=== PATIENT | female | born 1930 | race Caucasian/White ===

== ENCOUNTER 2017-09-09 09:51 | Emergency (ER) | payer OTHER, MEDICARE ==
[2017-09-09 10:06] VITALS: RESP 18
[2017-09-09 11:30] LABS: PLATELET COUNT 201 10^3/uL (150-400)
[2017-09-09] MEDS ORDERED: IOPAMIDOL (ISOVUE-300) 100 ML BTL ONE (12:27)
[2017-09-09] MEDS ORDERED: cefTRIAXone 1 GM in STERILE WATER INJ 10 ML IV ONE (13:44)
--- NOTE | 2017-09-09 14:22 | EDPHY ---
H & P Smoking Status: Never smoked Time Seen by Provider: 09/09/17 11:10 HPI/ROS: CHIEF COMPLAINT: Right flank pain HISTORY OF PRESENT ILLNESS: 86-year-old female presents to the emergency department by private vehicle with her daughter complaining of right flank pain. Patient states that this woke her up out of her sleep at 3 o'clock this morning. She felt nauseous. She apparently was dry heaving. She has no associated abdominal pain. She states that the pain has not greatly improved. No chest pain or difficulty breathing. No reported fevers or chills. No urinary symptoms. No known hematuria. No history of kidney stones. No reported trauma. REVIEW OF SYSTEMS: Constitutional: No fever, no chills. Eyes: No double or blurry vision. ENT: No sore throat. Respiratory: No cough, no shortness of breath. Cardiac: No chest pain. Gastrointestinal: No abdominal pain, vomiting or diarrhea. Genitourinary: Dysuria, frequency with urination. Musculoskeletal: Right flank pain as above. No neck pain. Skin: No rashes. Neurological: No headache. (Leela Veliz) Past Medical/Surgical History: Hypertension, COPD, TIA, myocardial infarction 2013, hypothyroidism (Leela Veliz) Social History: Lives with her daughter in [place] (Leela Veliz) Physical Exam: General Appearance: Alert, no distress. Afebrile. Daughter at bedside. Eyes: Pupils equal and round. Extraocular motions are all intact. ENT: Mouth: Mucous membranes moist. Respiratory: No wheezing, rhonchi, or rales, lungs are clear to auscultation. Cardiovascular: Regular rate and rhythm. Gastrointestinal: Abdomen is soft and nontender. No masses, rebound or guarding noted. No CVA tenderness bilaterally. Neurological: Alert and oriented x 3, cranial nerves II through XII grossly intact Skin: Warm and dry, no rashes. Musculoskeletal: Nontender to palpate along the cervical, thoracic or lumbar spine. Neck is supple. Extremities: Full range of motion and no peripheral edema. Psychiatric: Patient is oriented X 3, there is no agitation. (Leela Veliz) Constitutional: Initial Vital Signs Temperature (C) 37.1 C 09/09/17 10:02 Heart Rate 104 H 09/09/17 10:02 Respiratory Rate 18 09/09/17 10:02 Blood Pressure 134/63 H 09/09/17 10:02 O2 Sat (%) 94 09/09/17 10:02 O2 Delivery Mode Room Air Allergies/Adverse Reactions: No Known Allergies Allergy (Unverified 09/09/17 20:18) Home Medications: Medication Instructions Recorded Albuterol Sulfate 2.5 mg IH BID 09/09/17 Albuterol [Proventil Inhaler HFA 2 puffs IH Q4 PRN 09/09/17 (*)] Atorvastatin Calcium [Lipitor 40 40 mg PO HS 09/09/17 mg (*)] Budesonide/Formoterol 160/4.5 2 puffs IH DAILY 09/09/17 [Symbicort 160-4.5 Mcg Inh (*)] Carvedilol [Coreg (*)] 12.5 mg PO BIDMEAL 09/09/17 Clopidogrel Bisulfate [Plavix (*)] 75 mg PO HS 09/09/17 Ferrous Sulfate [Ferrous Sulf 325 325 mg PO HS 09/09/17 MG (*)] Fluticasone Nasal [Flonase Nasal 1 sprays NASAL DAILY PRN 09/09/17 [place]] Furosemide [Lasix 20 MG (*)] 20 mg PO DAILY 09/09/17 Levothyroxine [Synthroid 75 mcg 75 mcg PO DAILY06 09/09/17 (*)] Miconazole Nitrate [Micatin 2% 1 chelsie TP BID PRN 09/09/17 Cream (*)] Montelukast Sodium [Singulair 10 10 mg PO DAILY@1800 09/09/17 mg (*)] [place]-3 Fatty Acids [Fish Oil 1000 2,000 mg PO HS 09/09/17 mg (*)] Pantoprazole Sodium [Protonix 40mg 40 mg PO DAILY 09/09/17 (*)] Potassium Cl [Klor-Con 10 meq (RX)] 10 meq PO DAILY 09/09/17 Psyllium Husk (with Sugar) 1 each PO DAILY 09/09/17 [Metamucil Packet] Quinapril HCl [Accupril 40 MG] 40 mg PO DAILY 09/09/17 amLODIPine BESYLATE [Amlodipine 5 mg PO HS 09/09/17 Besylate] Amoxicillin/Clavulanate Pot 875 mg PO BID #28 tab 03/15/18 [Augmentin 875 MG TAB (*)] Medical Decision Making - Diagnostics Imaging: Discussed imaging studies w/ on call Radiologist ED Course/Re-evaluation: 86-year-old female presents to the emergency department with right flank pain. The urinalysis reveals large amount of red blood cells and white blood cells. CT scan of the abdomen and pelvis with IV contrast reveals: 1. Severely atrophic right kidney with extensive scarring. 2. Suspect pyelitis of the right upper urinary tract evidenced by dilation, abnormal urothelial enhancement, and reactive stranding around the right kidney and right ureter. No obstructing ureteral calculi or mass. Differential diagnosis includes benign stricture at the ureterovesical junction versus reflux uropathy. 3. No renal abscess, CT evidence of pyelonephritis, or emphysematous pyelitis. 4. Constipation and sigmoid diverticulosis. 5. Old L1 compression fracture. I talked with on-call urologist, Dr. Ernie Zarate, who did not feel that the patient required admission. He agreed with treatment of pyelonephritis. Patient felt comfortable being discharged home. Her daughter will watch her closely and bring her back if she develops flank pain, vomiting, fever or if she feels worse. Patient was given 1 g of IV ceftriaxone and will be discharged with oral Keflex. The case was discussed with Dr. Nolberto Perez, secondary supervising physician, who did not directly evaluate the patient but agrees with treatment and plan. ( Leela Veliz) I did not see this patient while she was in the emergency department. However her care was discussed with the PA while the patient was in the department. I agree with treatment plan and management (Nolberto Perez) Differential Diagnosis: Including but not limited to urinary tract infection, pyelonephritis, kidney stone, muscular pain, herniated disc, spine fracture, intra-abdominal causes ( Leela Veliz) - Data Points Laboratory Results: Laboratory Results 09/09/17 11:25 09/09/17 10:30 Medications Given: Discontinued Medications Ceftriaxone Sodium/Dextrose (Rocephin 1 Gm (Premix)) 50 mls @ 100 mls/hr IV ONCE ONE Stop: 09/09/17 14:29 Last Admin: 09/09/17 14:01 Dose: 50 mls Departure - Departure Disposition: Home, Routine, Self-Care Clinical Impression: Pyelonephritis Condition: Good Instructions: Kidney Infection (ED), Flank Pain (ED) Additional Instructions: Keflex as directed. Urine culture will be available in 48 hours. Return if you developed fever, vomiting, worsening flank pain or abdominal pain , or if you feel worse in any way. Follow up with urologist as discussed this week. Referrals: Ernie Zarate MD [Medical Doctor] - 2-3 days, call for appt. (Urologist on-call)
[2017-09-09 14:58] VITALS: BP 129/78; PULSE 79; TEMP 98.4; O2SAT 95
== END 2017-09-09 14:58 | disposition home or self-care (01) ==
DX: N12 Tubulo-interstitial nephritis, not specified as acute or chronic (principal); I10 Essential (primary) hypertension; J44.9 Chronic obstructive pulmonary disease, unspecified; I25.2 Old myocardial infarction; Z86.73 Personal history of transient ischemic attack (TIA), and cerebral infarction without residual deficits
CPT/HCPCS: 74177; 96365; 99285; J0696; Q9967

== ENCOUNTER 2017-09-09 20:17 | Inpatient (IN) | payer OTHER, MEDICARE ==
[2017-09-09] MEDS ORDERED: NS 1,000 ML IV ONE (20:35)
[2017-09-09] MEDS ORDERED: ACETAMINOPHEN 500 MG TAB PO ONE (20:37)
[2017-09-09 20:47] LABS: PLATELET COUNT 186 10^3/uL (150-400)
--- NOTE | 2017-09-09 20:53 | EDPHY ---
H & P Time Seen by Provider: 09/09/17 20:34 HPI/ROS: HPI Fever, vomiting, pyelonephritis, seen earlier in the emergency department. 86-year-old female by private vehicle with family. This patient was seen in our emergency department earlier this morning and diagnosed with pyelonephritis at that time. She received 1 g of IV Rocephin and was discharged on Keflex. CT scan of abdomen and pelvis at that time indicated a right-sided pyelonephritis. Her urine showed evidence of infection. She was doing all right at home for few hours but then started feeling very fatigued, developed a fever with nausea and started vomiting. She also felt short of breath. Her family returned her to the emergency department by private vehicle. ROS: Constitutional: As above, no chills. As above. Eyes: No discharge. No changes in vision. ENT: No sore throat. No nasal congestion or rhinorrhea. Respiratory: No cough. As above. Cardiac: No chest pain, no palpitations. Gastrointestinal: No abdominal pain, as above, no diarrhea. Genitourinary: No hematuria. No dysuria or increased frequency with urination. Musculoskeletal: Some right flank pain. No neck pain. No myalgias or arthralgias. Skin: No rashes. Neurological: No headache. No focal weakness or altered sensation. Past medical history: Hypertension, hypothyroidism, COPD/asthma, TIA, [place] in 2014. Social history: Nonsmoker. No alcohol. Here with family. Physical Exam: General Appearance: Alert, she does not appear in distress. She is not dyspneic. This patient is responding to questions appropriately and in full sentences. This patient appears well-hydrated and well-nourished. Eyes: Pupils equal and round no pallor or injection. No lid edema, erythema or injection. Respiratory: There are no retractions, lungs are clear to auscultation with good air movement bilaterally. No tachypnea. Cardiovascular: Regular rate and rhythm. Borderline tachycardia. No murmur. Gastrointestinal: Abdomen is soft and nontender, no masses, bowel sounds normal. No focal tenderness at McBurney's point. No Acosta sign. Neurological: Motor sensory function is grossly intact. Cranial nerves are normal. Gait is normal. Skin: Warm and dry, no rashes. Musculoskeletal: Mild right-sided CVA tenderness on palpation. No left-sided CVA tenderness on palpation. Extremities are symmetrical. All joints range without pain or impingement. Psychiatric: No agitation. No depression. Database: EKG: Imaging: Procedures: Emergency department course: Vital signs reviewed. She is tachycardic, febrile and mildly hypoxic. She will be started on IV normal saline with 1 L to be given over the next hour. After blood cultures are obtained she will be given another dose of IV Rocephin. Patient does meet criteria for SIRS and initial sepsis protocol. 9:20 p.m., initial venous lactate is 1.4. Her tachycardia has resolved with IV fluids as noted. She is currently in the high 90s for a heart rate. At this time she does not meet criteria for severe sepsis. I spoke with on-call hospitalist Dr. Natalie Perry. She accepts the patient for admission. The patient has received 1 g of IV Rocephin. We checked with the lab. Her urine from earlier today is being cultures and sensitivities will be obtained. 9:25 p.m., Dr. Roxanne Perry is at the bedside. Results of diagnostic testing discussed with the patient and her relatives. Plan for admission reviewed. All of their questions were answered. The patient was admitted in stable condition. Differential Diagnosis: The differential diagnosis on this patient includes but is not limited to pyelonephritis, sepsis, asthma/COPD exacerbation. This represents a partial list of diagnoses considered. These considerations are based on history, physical exam, past history, reassessment and diagnostic testing. Smoking Status: Former smoker Constitutional: Initial Vital Signs Temperature (C) 39 C H 09/09/17 20:20 Heart Rate 123 H 09/09/17 20:20 Respiratory Rate 20 09/09/17 20:20 Blood Pressure 134/83 H 09/09/17 20:20 O2 Sat (%) 90 L 09/09/17 20:20 O2 Delivery Mode Room Air O2 (L/minute) 2 Allergies/Adverse Reactions: No Known Allergies Allergy (Unverified 09/09/17 20:18) Home Medications: Medication Instructions Recorded Albuterol Sulfate 2.5 mg IH BID 09/09/17 Albuterol [Proventil Inhaler HFA 2 puffs IH Q4 PRN 09/09/17 (*)] Atorvastatin Calcium [Lipitor 40 40 mg PO HS 09/09/17 mg (*)] Budesonide/Formoterol 160/4.5 2 puffs IH DAILY 09/09/17 [Symbicort 160-4.5 Mcg Inh (*)] Carvedilol [Coreg (*)] 12.5 mg PO BIDMEAL 09/09/17 Clopidogrel Bisulfate [Plavix (*)] 75 mg PO HS 09/09/17 Ferrous Sulfate [Ferrous Sulf 325 325 mg PO 09/09/17 MG (*)] Fluticasone Nasal [Flonase Nasal 1 sprays NASAL DAILY PRN 09/09/17 [place] (RX)] Furosemide [Lasix 20 MG (*)] 20 mg PO DAILY 09/09/17 Levothyroxine [Synthroid 75 mcg 75 mcg PO DAILY06 09/09/17 (*)] Miconazole Nitrate [Micatin 2% 1 chelsie TP BID PRN 09/09/17 Cream (*)] Montelukast Sodium [Singulair 10 10 mg PO DAILY@1800 09/09/17 mg (*)] [place]-3 Fatty Acids [Fish Oil 1000 2,000 mg PO HS 09/09/17 mg (*)] Pantoprazole Sodium [Protonix 40mg 40 mg PO DAILY 09/09/17 (*)] Potassium Cl [Klor-Con] 10 meq PO DAILY 09/09/17 Psyllium Husk (with Sugar) 1 each PO DAILY 09/09/17 [Metamucil Packet] Quinapril HCl [Accupril 40 MG] 40 mg PO DAILY 09/09/17 amLODIPine BESYLATE [Amlodipine 5 mg PO HS 09/09/17 Besylate] Medical Decision Making - Data Points Laboratory Results: Laboratory Results 09/09/17 20:37 09/09/17 20:37 Microbiology Results: MICROBIOLOGY 09/09/17 21:06 Blood Blood Culture - Preliminary 09/09/17 20:37 Blood Blood Culture - Preliminary Medications Given: Acetaminophen (Tylenol) 650 mg PO Q4HRS PRN PRN Reason: Pain, Mild/Fever, Can Take PO Stop: 03/08/18 21:41 Last Admin: 09/10/17 17:16 Dose: 650 mg Albuterol (Proventil Neb) 2.5 ml IH BID [facility] Stop: 03/09/18 08:59 Last Admin: 09/11/17 11:10 Dose: 2.5 ml Amlodipine Besylate (Norvasc) 5 mg PO [facility] Stop: 03/09/18 20:59 Last Admin: 09/10/17 21:42 Dose: 5 mg Atorvastatin Calcium (Lipitor) 40 mg PO HS [facility] Stop: 03/09/18 20:59 Last Admin: 09/10/17 21:42 Dose: 40 mg Budesonide/Formoterol Fumarate (Symbicort 160-4.5 Mcg Inhaler) 2 puffs IH DAILY [facility] Stop: 03/09/18 08:59 Last Admin: 09/11/17 10:04 Dose: 2 puffs Carvedilol (Coreg) 12.5 mg PO BIDMEAL [facility] Stop: 03/09/18 17:59 Last Admin: 09/11/17 08:18 Dose: 12.5 mg Clopidogrel Bisulfate (Plavix) 75 mg PO HS [facility] Stop: 03/08/18 23:06 Last Admin: 09/10/17 21:42 Dose: 75 mg Enoxaparin Sodium (Lovenox) 40 mg SC DAILY [facility] Stop: 03/09/18 08:59 Last Admin: 09/11/17 13:16 Dose: Not Given Ferrous Sulfate (Ferrous Sulfate) 325 mg PO HS [facility] Stop: 03/09/18 20:59 Last Admin: 09/10/17 21:42 Dose: 325 mg Furosemide (Lasix) 20 mg PO DAILY [facility] Stop: 03/09/18 08:59 Last Admin: 09/11/17 08:18 Dose: 20 mg Cefepime HCl 1 gm/ Sterile (Water) 11.3 mls @ 135.6 mls/hr IV Q8H [facility] PRN Reason: Protocol Stop: 10/10/17 04:59 Last Admin: 09/11/17 13:17 Dose: 11.3 mls Levothyroxine Sodium (Synthroid) 75 mcg PO DAILY06 [facility] Stop: 03/09/18 05:59 Last Admin: 09/11/17 05:42 Dose: 75 mcg Lisinopril (Zestril) 40 mg PO DAILY [facility] Stop: 03/10/18 08:59 Last Admin: 09/11/17 08:19 Dose: 40 mg Montelukast Sodium (Singulair) 10 mg PO DAILY@1800 [facility] Stop: 03/09/18 17:59 Last Admin: 09/10/17 18:02 Dose: 10 mg Pantoprazole Sodium (Protonix) 40 mg PO DAILY [facility] Stop: 03/09/18 08:59 Last Admin: 09/11/17 08:19 Dose: 40 mg Potassium Chloride (Klor-Con) 10 meq PO DAILY [facility] Stop: 03/09/18 08:59 Last Admin: 09/11/17 08:19 Dose: 10 meq Psyllium Hydrophilic Mucilloid (Metamucil/Konsyl) 1 each PO DAILY [facility] Stop: 03/10/18 08:59 Last Admin: 09/11/17 08:20 Dose: 1 each Discontinued Medications Acetaminophen (Tylenol) 1,000 mg PO EDNOW ONE Stop: 09/09/17 20:38 Last Admin: 09/09/17 20:40 Dose: 1,000 mg Sodium Chloride (Ns) 1,000 mls @ 0 mls/hr IV ONCE ONE; [place] PRN Reason: Protocol Stop: 09/09/17 20:36 Last Admin: 09/09/17 20:41 Dose: 1,000 mls Ceftriaxone Sodium/Dextrose (Rocephin 1 Gm (Premix)) 50 mls @ 100 mls/hr IV EDNOW ONE PRN Reason: Protocol Stop: 09/09/17 21:24 Last Admin: 09/09/17 21:03 Dose: 50 mls Departure - Departure Disposition: [facility] Inpatient Acute Clinical Impression: Pyelonephritis, Fever
[2017-09-09 20:58] LABS: INR 1.02 (0.83-1.16); PROTIME(PATIENT) 13.6 SEC (12.0-15.0)
--- NOTE | 2017-09-09 21:09 | CPEKG ---
Heart Rate: 100 RR Interval: 600 P-R Interval: 208 QRSD Interval: 92 QT Interval: 352 QTC Interval: 454 P Franc[place]: 65 QRS [place]: 52 T Wave Franc[place]: 234 EKG Severity - ABNORMAL ECG - EKG Impression: SINUS TACHYCARDIA EKG Impression: NONSPECIFIC T ABNORMALITIES, LATERAL LEADS Electronically Signed By: Brooke Miguel 10-Sep-2017 23:02:12
[2017-09-09] MEDS ORDERED: ONDANSETRON DISINTEGRATING 4 MG TAB PO PRN (21:42)
[2017-09-09] MEDS ORDERED: ONDANSETRON 4 MG/2 ML VIAL IVP PRN (21:42)
[2017-09-09] MEDS ORDERED: NS 1,000 ML IV SCH (21:45)
--- NOTE | 2017-09-09 22:34 | GHP ---
[f rep st] HISTORY AND PHYSICAL DATE OF ADMISSION: 09/09/2017 CHIEF COMPLAINT: Right flank pain, fever, nausea, and vomiting. HISTORY OF PRESENT ILLNESS: The patient is an 86-year-old female with a history of hypertension, COPD, TIA, and [place], who presents to the emergency department with fever, nausea, vomiting, and right flank pain. She was seen in the ED earlier today, diagnosed with pyelonephritis, and was discharged on oral Keflex. Her symptoms woke her from sleep this morning at 3 a.m. with sudden severe right flank pain. Throughout the day, she has developed fever to 102, and also reports nausea with several episodes of vomiting. She endorsed chills , but denies rigors. Prior to this event, she was diagnosed with a yeast infection 2 weeks ago, and has been using topical miconazole for the past 2 weeks. She did endorse dysuria at the onset of her yeast infection, so it is unclear if her UTI symptoms may have started at that time. After discharging from the emergency department this morning, she continued to feel fatigued, with worsening fever and persistent nausea and vomiting, as well as shortness of breath. She returned to the emergency department. She was given a 1 L normal saline fluid bolus, urine cultures and blood cultures were drawn, and she was given 1 g of IV ceftriaxone. She was admitted to the hospital for further management. PAST MEDICAL HISTORY: 1. Hypertension. 2. Hypothyroidism. 3. COPD/asthma. 4. History of TIA. 5. History of [place] in 2013. MEDICATIONS: Please see Present for completed outpatient medication list. ALLERGIES: She has no known drug allergies. SOCIAL HISTORY: The patient lives with her daughters. She is independent in her activities of daily living. They report some memory loss. She denies alcohol or tobacco. FAMILY HISTORY: Reviewed and noncontributory. REVIEW OF SYSTEMS: A 10-point review of systems was performed and was negative , except as per HPI. OBJECTIVE: VITAL SIGNS: Temperature on arrival this evening was 39 degrees Celsius, blood pressure 134/83, heart rate 123. After 1 L normal saline, heart rate is down to 94. Respiratory rate 16, she is 97% on room air. GENERAL: The patient is awake, alert, oriented, in no acute distress. HEENT: Head is atraumatic, normocephalic. Pupils equal, round, reactive to light. Extraocular muscles intact. Oropharynx clear. Mucous members are moist. NECK : Supple. There is no JVD. HEART: Regular rate and rhythm without murmur. LUNGS: Clear to auscultation bilaterally. ABDOMEN: Soft, nondistended, nontender with normoactive bowel sounds. She has right-sided CVA tenderness. EXTREMITIES: Without cyanosis, clubbing, or edema. NEUROLOGIC: Grossly nonfocal. LABORATORY DATA: CBC reveals a white blood cell count of 14.1 with 94% neutrophils. Hemoglobin is normal. Lactate is normal at 1.4. Complete metabolic panel is remarkable for sodium of 130, blood glucose 133, total bilirubin 1.5. LFTs otherwise normal. Urinalysis from this morning showed 3+ blood, 3+ leukocyte esterase, with 5125 white blood cells. Urine culture is pending. ASSESSMENT AND PLAN: The patient is an 86-year-old female who returns to the emergency department with worsening fever, nausea, vomiting, and flank pain, and is admitted to the hospital for pyelonephritis. 1. Sepsis secondary to acute pyelonephritis. She meets SIRS criteria for sepsis with fever, tachycardia and leukocytosis. No hypotension. CT abdomen and pelvis performed this morning is suggestive of pyelonephritis with abnormal urothelial enhancement, stranding around the right kidney and ureter, with no evidence of obstructing calculi or mass. A stricture at the ureterovesical junction versus reflexive uropathy is considered, and she may warrant inpatient Urology consultation if she has clinical deterioration. I reviewed her prior culture data. She grew Pseudomonas on a urine culture from July 2016 which was sensitive to cefepime. Therefore, I will change her from ceftriaxone to cefepime and follow up urine culture and blood cultures to further tailor antibiotics as indicated. Will continue normal saline overnight, antiemetics, and supportive care. 2. Chronic obstructive pulmonary disease. Her chest x-ray shows no acute cardiopulmonary abnormality. Will continue her outpatient medications. 3. Hypertension. Hold outpatient meds for now to ensure she does not develop hypotension during acute infection / sepsis. Resume as indicated. 4. History of transient ischemic attack. Continue Plavix. 5. History of myocardial infarction. She is chest pain-free. Continue beta- janeen, statin, and Plavix once her medication reconciliation is completed. 6. Deep venous thrombosis prophylaxis. Lovenox. 7. Code status: Patient is full code. DISPOSITION: Patient admitted to inpatient status. I anticipate greater than 48 hours hospitalization for ongoing management of her acute pyelonephritis and associated sepsis. /[id number]/MODL MTDD
[2017-09-09] MEDS ORDERED: ALBUTEROL 60 PUFFS/8 GM MDI IH PRN (23:06)
[2017-09-09] MEDS ORDERED: FLUTICASONE NASAL 120 SPRAYS/16 GM MDI EACHNARE PRN (23:06)
[2017-09-10] MEDS: CLOPIDOGREL BISULFATE 75 MG TAB PO SCH ×2 (00:34→21:42)
[2017-09-10] MEDS: LEVOTHYROXINE 75 MCG TAB PO SCH (05:06)
[2017-09-10] MEDS: CEFEPIME HCL 1 GM in STERILE WATER INJ 11.3 ML IV SCH ×3 (05:06→21:42)
[2017-09-10 05:36] LABS: PLATELET COUNT 144 10^3/uL (150-400)
--- NOTE | 2017-09-10 08:24 | PDMN ---
Medical Necessity Medical necessity: est los>2mn for sepsis r/t pyelonephritis, meeting SIRS criteria w/fever, tachycardia and leukocytosis, consider stricture at ureterovesical junction vs reflexive ureopathy; admit for IV abx, follow cx's, and possible urology consult; comorbid COPD, HTN, hx TIA, [place]; per order and H&P 09/09/17
[2017-09-10] MEDS: FUROSEMIDE 20 MG TAB PO SCH (09:21)
[2017-09-10] MEDS: ENOXAPARIN 40 MG/0.4 ML SYR SC SCH (09:22)
[2017-09-10] MEDS: POTASSIUM CL 10 MEQ TAB PO SCH (09:22)
[2017-09-10] MEDS: PANTOPRAZOLE SODIUM 40 MG TAB PO SCH (09:22)
[2017-09-10] MEDS: ALBUTEROL 3 ML DEYVIAL IH SCH ×2 (09:55→20:47)
[2017-09-10] MEDS: BUDESONIDE/FORMOTEROL 160/4.5 60 PUFFS/MDI IH SCH (10:13)
[2017-09-10] MEDS ORDERED: PROTOCOL POTASSIUM 1 DOSE MISC PRN (11:10)
[2017-09-10] MEDS: ACETAMINOPHEN 325 MG TAB PO PRN ×2 (12:26→17:16)
--- NOTE | 2017-09-10 12:56 | HOSPPROG ---
Hospitalist Progress Note Assessment/Plan: * Acute right pyelo with sepsis (fever, tachycardia, leukocytosis with right flank pain) -IV cefepime given pseudomonas on past culture -? 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 Avilez urology -he did not recommend any further imaging - limited by non-functional kidney -perc nephrostomy if worsens - currently very non-toxic * CAD -continue Plavix * COPD -Symbicort * HTN -home meds as BP allows * Vaginal yeast infection s/p miconazole Subjective: No further flank pain. Feels great Objective: Vital Signs Temp Pulse Resp BP Pulse Ox 36.5 C 85 16 114/52 L 93 09/10/17 11:48 09/10/17 11:48 09/10/17 11:48 09/10/17 11:48 09/10/17 11:48 Laboratory Results 09/10/17 05:05 09/10/17 05:05 09/09/17 09/10/17 09/11/17 05:59 05:59 05:59 Intake Total 700 Output Total 400 Balance 700 -400 PT 13.6 SEC (12.0-15.0) 09/09/17 20:37 INR 1.02 (0.83-1.16) 09/09/17 20:37 CT abd - atrophic right kidney with stranding - Physical Exam Constitutional: no apparent distress, appears nourished, not in pain Cardiovascular: regular rate and rhythym, no murmur, rub, or gallop Respiratory: no respiratory distress, no rales or rhonchi, clear to auscultation Gastrointestinal: normoactive bowel sounds, soft, non-tender abdomen, no palpable masses Skin: no rashes or abrasions, no fluctuance, no induration Neurologic: AAOx3, sensation intact bilaterally Psychiatric: interacting appropriately, not anxious, not encephalopathic, thought process linear ICD10 Worksheet Patient Problems: Problems Problem Status Onset Pyelonephritis Acute
--- NOTE | 2017-09-10 14:55 | ASMTCASEMG ---
Living Arrangements What is your living Answers: With Child(bernardo) arrangement? Who do you live with? Type Of Residence What kind of residence do Answers: House you live in? Discharge Plan Comments Coordination Status Comments Notes: Pt is a 86 y/o female admitted for pyelonephritis. Therapies have been ordered. OT is recommending home w/ daughter independently. Still awaiting for PT recommendations. CM to follow. Plan: TBD Date Signed: 09/10/2017 02:55 PM Electronically Signed By:LEILA Amaya
[2017-09-10] MEDS: CARVEDILOL 6.25 MG TAB PO SCH (17:06)
[2017-09-10] MEDS: MONTELUKAST SODIUM 10 MG TAB PO SCH (18:02)
[2017-09-10] MEDS: amLODIPine BESYLATE 5 MG TAB PO SCH (21:42)
[2017-09-10] MEDS: FERROUS SULFATE 325 MG TAB PO SCH (21:42)
[2017-09-10] MEDS: ATORVASTATIN CALCIUM 40 MG TAB PO SCH (21:42)
[2017-09-11 05:28] LABS: PLATELET COUNT 151 10^3/uL (150-400)
[2017-09-11] MEDS: CEFEPIME HCL 1 GM in STERILE WATER INJ 11.3 ML IV SCH ×3 (05:41→20:40)
[2017-09-11] MEDS: LEVOTHYROXINE 75 MCG TAB PO SCH (05:42)
[2017-09-11] MEDS: FUROSEMIDE 20 MG TAB PO SCH (08:18)
[2017-09-11] MEDS: CARVEDILOL 6.25 MG TAB PO SCH ×2 (08:18→17:51)
[2017-09-11] MEDS: ENOXAPARIN 40 MG/0.4 ML SYR SC SCH ×2 (08:18→13:16)
[2017-09-11] MEDS: POTASSIUM CL 10 MEQ TAB PO SCH (08:19)
[2017-09-11] MEDS: LISINOPRIL 40 MG TAB PO SCH (08:19)
[2017-09-11] MEDS: PANTOPRAZOLE SODIUM 40 MG TAB PO SCH (08:19)
[2017-09-11] MEDS: PSYLLIUM METAMUCIL 1 PKT PO SCH (08:20)
[2017-09-11] MEDS ORDERED: NON-FORMULARY NEW DRUG (Quinapril Hcl [Accupril 40 Mg] 40 MG) PO SCH (09:00)
[2017-09-11] MEDS: BUDESONIDE/FORMOTEROL 160/4.5 60 PUFFS/MDI IH SCH (10:04)
--- NOTE | 2017-09-11 10:37 | ASMTCMCOM ---
CM Note CM Note Notes: PT is recommending home independent. Pt will most likely d/c without any needs. Pt will return to living w/ daughters. CM available for changes. Plan: Independent Date Signed: 09/11/2017 10:37 AM Electronically Signed By:LEILA Amaya
[2017-09-11] MEDS: ALBUTEROL 3 ML DEYVIAL IH SCH ×2 (11:10→20:58)
--- NOTE | 2017-09-11 11:25 | GCON ---
[f rep st] CONSULTATION INFECTIOUS DISEASE CONSULTATION DATE OF CONSULTATION: 09/11/2017 REFERRING PHYSICIAN: Jimena Mullins MD REASON FOR CONSULTATION: Pyelonephritis. CHIEF COMPLAINT: Right flank pain and fevers. HISTORY OF PRESENTING ILLNESS: This is an 86-year-old, female with a past medical history significant for COPD, hypothyroidism, hypertension, TIA, and [place] who presented on Sunday with acute onset of flank pain. It apparently woke her up at 3:00 a.m. She came into the ER later that m orning and at that time she did not have any fever. She had some mild discomfort with urination, but significant right flank pain. She had a urinalysis done at the time, which showed urine WBCs of 50- 182 with urine RBC of 10-15, 3+ leukocyte esterases. No blood cultures were done at that time. She had an abdominal CT done also which showed a severely atrophic right kidney with extensive scarring b ut also suspicious for pyelonephritis because of dilation, abnormal urothelial enhancement and strand ing around the right kidney and right ureter. There was no identification of any calculi or mass but there was also a question of possible stricture at the ureterovesical junction. She was given a dos e of Rocephin in the ER and then sent home on Keflex therapy. She possibly took 1 dose, but during t he rest of the day, she had fevers spiking to 103, but shaking chills and vomiting and thus returned back to the ER later that evening. Blood cultures x2 sets were drawn and those are currently no grow th to date. She did have a significant leukocytosis when she came in Sunday at 16.3, it was down to 14.1 later that evening but with an ongoing left shift. At that time she was febrile to 39 a nd tachycardic with a heart rate of 123. She was placed on cefepime therapy. She states that since that time, her right flank pain has resolved and she no longer has dysuria. She also feels her urina ry frequency has come down to baseline. Her white blood cell count has steadily improved since that time and was down to 7.2 today with only mild left shift. She had a repeat urine culture done on the , which is pending. Her urine culture from [place] [id number] of a gram-negative reginaldo lactose landscape artist and then 4000 of a 2nd gram-negative reginaldo lactose ferme nter, and then 3 [place] [id number] colony-forming units. She did have a previous urine cul ture about 1 year ago, which had Pseudomonas in it. Two weeks ago she had another urine done which h ad also had 3 [place] [id number] units colony-forming units. Ubaldo Asher is now consulted for further evaluation and opinion. REVIEW OF SYSTEMS: GENERAL: Had fevers and shaking chills on admission, that has subsequently resol wallace. HEAD: No headaches. EYES: No change in vision. ENT: No sore throat, difficulty swallowing, ear pain or drainage. CARDIOVASCULAR: No chest pain or rapid heartbeat. RESPIRATORY: No increase d shortness of breath, cough, or sputum production. She has baseline shortness of breath with minima l exertion. ABDOMEN: No nausea, vomiting, abdominal pain, or diarrhea now. BACK: No current flank pain. : Resolution of her dysuria and increased urinary frequency. MUSCULOSKELETAL: No joint p ains or muscle aches. SKIN: No rashes. Rest of 10-point review of systems essentially negative unl ess stated above. PAST MEDICAL HISTORY: Significant for COPD, hypothyroidism, hypertension, TIA, [place]. PAST SURGICAL HISTORY: Significant for stent placement, carotid endarterectomy, recent right lower t ooth extraction about 1 week ago for a cracked tooth. She was not placed on antibiotics. She also h ad a tib-fib fracture that was status post ORIF. ALLERGIES: No known drug allergies. SOCIAL HISTORY: She lives with her daughter. She is independent with her daily activities. She is a former smoker. She drinks alcohol socially. FAMILY HISTORY: Significant for her mother dying with tuberculosis and her father dying of a heart a ttack. MEDICATIONS: As per AUG. PHYSICAL EXAMINATION: VITAL SIGNS: Temperature current 36.7, pulse is 78, blood pressure 122/74, O2 saturation 96% on 2 L O2 via nasal cannula. GENERAL EXAM: She is resting in bed, in no acute respi ratory distress. Awake, alert, oriented x3. HEENT: Head is normocephalic, atraumatic. Eyes withou t conjunctival injection. Oropharynx is clear. There is no posterior erythema or thrush. She has u pper dentures. Her right posterior lower gumline with evidence of an abscessed tooth. She has tameka s noted. It is tender to palpate over that area. CARDIOVASCULAR: S1, S2. Regular rate and rhythm. She has a 3/6 systolic murmur present. RESPIRATORY: Clear to auscultation bilaterally. No rhonch i appreciated. ABDOMEN: Positive bowel sounds in all quadrants. Soft, nontender, nondistended. EX TREMITIES: No lower extremity edema. MUSCULOSKELETAL: No obvious joint effusions or pain to palpat ion over the joint. SKIN: No obvious rashes. LABORATORY DATA: White blood cell count 7.2, hemoglobin 11.2, platelets 151, neutrophil count 75%. Chemistry: Sodium 139, potassium 4.2, chloride 107, bicarb is 24, BUN is 10, creatinine 0.6. LFTs d one 2 days ago were within normal range. Urinalysis on both the and the 10 of September showed ur ine WBCs of 50 to 182 with 3+ leuk esterases, 3+ blood and protein present. Cultures from the a s stated above. Cultures from the and the urine are pending. Blood cultures in 2 sets on the 07 02 were no growth to date, but that was after 1 dose of Rocephin and a dose of Keflex. Imaging results have all been reviewed by me as stated above. ASSESSMENT: Right pyelonephritis. PLAN: Acute onset of right flank pain coupled with a fever and pyuria along with CT findings of brnuo nephric stranding, suspicious for pyelonephritis. Interestingly, she did not have a very high colony count on her urine specimen prior to antibiotics. Her subsequent blood cultures and urine cultures have been done, but they were after doses of antibiotics given so yield will be low for anything to s ignificantly grow out. The patient is currently on cefepime, is responding well. Likely, we can radu row down therapy based on her preliminary urine culture with gram-negative rods, lactose fermenters. Likely need at least 1 additional day to fully have her cultures mature. We will have micro workup per previous urine cultures to see if this may help us tailor down her therapy and also assess for pe rhaps oral options to go home with. She will likely need 10-14 days of therapy. The plan of care wa s explained in detail to the patient and her daughter. Lab results and culture results were also rev iewed with them. I thank you very much providing us the opportunity to care for your patient in consultation. /[id number]/MODL
--- NOTE | 2017-09-11 15:26 | HOSPPROG ---
Hospitalist Progress Note Assessment/Plan: Assessment/Plan: 86-year-old female new to my care on 09/11 last 18 presenting with: * Acute right pyelo with sepsis (fever, tachycardia, leukocytosis with right flank pain) -IV cefepime given pseudomonas on past culture -? 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 Avilez urology -he did not recommend any further imaging - limited by non-functional kidney -perc nephrostomy if worsens - currently very non-toxic * CAD -continue Plavix * COPD -Symbicort * HTN -home meds as BP allows * Vaginal yeast infection s/p miconazole Plan for 1 more day of IV antibiotics and further antibiotics per ID Subjective: Denies any flank pain. Result fevers or chills. Tolerating regular diet. Denies any chest pain or shortness of breath. Objective: Vital Signs Temp Pulse Resp BP Pulse Ox 36.7 C 71 14 122/74 H 95 09/11/17 07:48 09/11/17 11:14 09/11/17 11:14 09/11/17 07:48 09/11/17 11:14 Laboratory Results 09/11/17 05:00 09/11/17 05:00 09/10/17 09/11/17 09/12/17 05:59 05:59 05:59 Intake Total 700 2384 Output Total 400 Balance 700 1984 PT 13.6 SEC (12.0-15.0) 09/09/17 20:37 INR 1.02 (0.83-1.16) 09/09/17 20:37 - Physical Exam Constitutional: no apparent distress, appears nourished, not in pain Cardiovascular: regular rate and rhythym, no murmur, rub, or gallop Respiratory: no respiratory distress, no rales or rhonchi, clear to auscultation Gastrointestinal: normoactive bowel sounds, soft, non-tender abdomen, no palpable masses ICD10 Worksheet Patient Problems: Problems Problem Status Onset Pyelonephritis Acute Fever Acute
[2017-09-11] MEDS: MONTELUKAST SODIUM 10 MG TAB PO SCH (17:51)
[2017-09-11] MEDS: amLODIPine BESYLATE 5 MG TAB PO SCH (20:36)
[2017-09-11] MEDS: CLOPIDOGREL BISULFATE 75 MG TAB PO SCH (20:36)
[2017-09-11] MEDS: ATORVASTATIN CALCIUM 40 MG TAB PO SCH (20:36)
[2017-09-11] MEDS: FERROUS SULFATE 325 MG TAB PO SCH (20:37)
[2017-09-11] MEDS ORDERED: POTASSIUM CL 10 MEQ TAB PO ONE (20:44)
[2017-09-12] MEDS: CEFEPIME HCL 1 GM in STERILE WATER INJ 11.3 ML IV SCH ×3 (05:44→20:35)
[2017-09-12] MEDS: LEVOTHYROXINE 75 MCG TAB PO SCH (05:45)
[2017-09-12] MEDS ORDERED: POTASSIUM CL 10 MEQ TAB PO ONE (07:10)
[2017-09-12] MEDS: PSYLLIUM METAMUCIL 1 PKT PO SCH (08:22)
[2017-09-12] MEDS: ENOXAPARIN 40 MG/0.4 ML SYR SC SCH (08:22)
[2017-09-12] MEDS: CARVEDILOL 6.25 MG TAB PO SCH ×2 (08:23→17:30)
[2017-09-12] MEDS: POTASSIUM CL 10 MEQ TAB PO SCH (08:23)
[2017-09-12] MEDS: FUROSEMIDE 20 MG TAB PO SCH (08:24)
[2017-09-12] MEDS: PANTOPRAZOLE SODIUM 40 MG TAB PO SCH (08:24)
[2017-09-12] MEDS: ALBUTEROL 3 ML DEYVIAL IH SCH ×2 (09:33→20:23)
[2017-09-12] MEDS: BUDESONIDE/FORMOTEROL 160/4.5 60 PUFFS/MDI IH SCH (09:34)
--- NOTE | 2017-09-12 09:49 | HOSPPROG ---
Hospitalist Progress Note Assessment/Plan: 86-year-old female new to my care on 09/11 last 18 presenting with: * Acute right pyelo with sepsis (fever, tachycardia, leukocytosis with right flank pain) (klebsiella and e coli) -IV cefepime given pseudomonas on past culture -? 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 Will require another midnight stay to evaluate sensitivities for treatment. Subjective: Maria De Jesus is feeling much better. Objective: Vital Signs Temp Pulse Resp BP Pulse Ox 36.6 C 81 18 139/70 H 91 L 09/12/17 08:00 09/12/17 08:00 09/12/17 08:00 09/12/17 08:00 09/12/17 08:00 Laboratory Results 09/11/17 05:00 09/12/17 06:25 09/11/17 09/12/17 09/13/17 05:59 05:59 05:59 Intake Total 2384 Output Total 400 4 Balance 1984 - PT 13.6 SEC (12.0-15.0) 09/09/17 20:37 INR 1.02 (0.83-1.16) 09/09/17 20:37 - Physical Exam Constitutional: no apparent distress, appears nourished, not in pain Eyes: PERRL Ears, Nose, Mouth, Throat: hearing normal Cardiovascular: regular rate and rhythym Respiratory: no respiratory distress Gastrointestinal: normoactive bowel sounds Skin: warm, normal color Musculoskeletal: full muscle strength Neurologic: AAOx3 Psychiatric: interacting appropriately ICD10 Worksheet Patient Problems: Problems Problem Status Onset Fever Acute Pyelonephritis Acute
--- NOTE | 2017-09-12 10:56 | PCMIDPN ---
Assessment/Plan: # Ecoli / Klebs Pyelonephritis: clinically much improved with resolution of R flank pain and normalization of WBC --awaiting sensi to assess modality of antibiotics, hopeful to transition to PO levofloxacin . Creatinine clearance is 50 therefore would dose 750mg load then 750 mg every other day. Planning total 10 days of therapy if blood cx remain negative. 09/19/17 stop date Medications, antibiotics day 4 (if organism ends up being susceptible to ceftriaxone and cefepime) Cefepime 1 g IV Q8 Microbiology 09/10/17 05:00 Urine,Cx E coli 09/09/17 20:37 Blood Cx (2) NGTD 09/09/17 11:15 Urine,Cx Escherichia Coli, Klebsiella Pneumoniae Three [place] Types Time 35 min with greater than 50% time spent with education and counselin) Discussed possible side effects of Levaquin with patient it and her daughter, including photosensitivity and interaction with cations including calcium, zinc and magnesium. Patient is also advised to take with small amount food to minimize risk of nausea and avoid significant sun exposure by wearing hat, sunscreen. Levaquin and other antibiotics in this class have been associated with VERY RARE but disabling and potentially irreversible serious adverse reactions that have occurred together, including tendinitis and tendon rupture, peripheral neuropathy, and confusion. Discontinue levofloxacin immediately if you develop a serious reaction and call our office. 2) If greater than 3 loose stools, severe abdominal cramping or fever please call our office for evaluation of potential complication of all antibiotics, called C. difficile- associated diarrhea . Subjective: feeling well ready to go whenever we are ready to discharge R flank pain completely resolved Objective: Vital Signs Temp Pulse Resp BP Pulse Ox 36.6 C 72 16 139/70 H 92 09/12/17 08:00 09/12/17 09:35 09/12/17 09:35 09/12/17 08:00 09/12/17 09:35 Laboratory Results 09/11/17 05:00 09/12/17 06:25 09/11/17 09/12/17 09/13/17 05:59 05:59 05:59 Intake Total 2384 Output Total 400 4 Balance 1983 - Physical Exam General Appearance: alert, no apparent distress Respiratory: No accessory muscle use Extremities: No pedal edema Abdomen: non-tender, soft, other (no flank pain) Skin: No rash Neuro/Psych: alert, normal mood/affect, oriented x 3 - Line/s PIV Lines: other (R forearm), No drainage, No erythema ICD10 Worksheet Patient Problems: Problems Problem Status Onset Fever Acute Pyelonephritis Acute
[2017-09-12] MEDS: LISINOPRIL 40 MG TAB PO SCH (11:22)
[2017-09-12] MEDS: MONTELUKAST SODIUM 10 MG TAB PO SCH (17:31)
[2017-09-12] MEDS: FERROUS SULFATE 325 MG TAB PO SCH (20:36)
[2017-09-12] MEDS: ATORVASTATIN CALCIUM 40 MG TAB PO SCH (20:36)
[2017-09-12] MEDS: CLOPIDOGREL BISULFATE 75 MG TAB PO SCH (20:36)
[2017-09-12] MEDS: amLODIPine BESYLATE 5 MG TAB PO SCH (20:36)
[2017-09-13] MEDS: CEFEPIME HCL 1 GM in STERILE WATER INJ 11.3 ML IV SCH ×2 (05:18→11:54)
[2017-09-13] MEDS: LEVOTHYROXINE 75 MCG TAB PO SCH (05:19)
[2017-09-13 08:10] VITALS: BP 143/77; TEMP 97.7
[2017-09-13] MEDS: ALBUTEROL 3 ML DEYVIAL IH SCH (08:59)
[2017-09-13] MEDS: BUDESONIDE/FORMOTEROL 160/4.5 60 PUFFS/MDI IH SCH (09:00)
[2017-09-13 09:21] VITALS: PULSE 82; RESP 15; O2SAT 92
[2017-09-13] MEDS: ENOXAPARIN 40 MG/0.4 ML SYR SC SCH (09:32)
[2017-09-13] MEDS: PSYLLIUM METAMUCIL 1 PKT PO SCH (09:33)
[2017-09-13] MEDS: LISINOPRIL 40 MG TAB PO SCH (09:33)
[2017-09-13] MEDS: CARVEDILOL 6.25 MG TAB PO SCH (09:33)
[2017-09-13] MEDS: POTASSIUM CL 10 MEQ TAB PO SCH (09:34)
[2017-09-13] MEDS: PANTOPRAZOLE SODIUM 40 MG TAB PO SCH (09:34)
[2017-09-13] MEDS: FUROSEMIDE 20 MG TAB PO SCH (09:34)
--- NOTE | 2017-09-13 12:51 | HOSPPROG ---
Hospitalist Progress Note Assessment/Plan: 86-year-old female presenting with: * Acute right pyelo with sepsis (fever, tachycardia, leukocytosis with right flank pain) (klebsiella and e coli) -IV cefepime given pseudomonas on past culture -reviewed her care and treatment w Dr Michel, recommending [place] -reviewing cultures and sensitivities, she has been resistant to the antibiotic given for E coli and has gotten better -Dr. Michel recommended Augmentin for 14 days and to focus on treating the Klebsiella -this was reviewed with her daughter. 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 -previous provider spoke with urology -he did not recommend any further imaging - limited by non-functional kidney -perc nephrostomy if worsens - currently very non-toxic -will review her meds to be sure none are nephrotoxic * CAD -continue Plavix * COPD -Symbicort * HTN -home meds as BP allows * Vaginal yeast infection s/p miconazole * plan: Discharge home on Augmentin and further follow up with her primary care provider Subjective: Patient is feeling well and looking forward to going home Objective: Vital Signs Temp Pulse Resp BP Pulse Ox 36.5 C 82 15 143/77 H 92 09/13/17 08:00 09/13/17 09:04 09/13/17 09:04 09/13/17 08:00 09/13/17 09:04 Microbiology 09/10/17 05:00 Urine Culture - Final Urine,Catheterized Escherichia Coli Esbl Laboratory Results 09/11/17 05:00 09/12/17 06:25 09/12/17 09/13/17 09/14/17 05:59 05:59 05:59 Output Total 4 Balance -4 PT 13.6 SEC (12.0-15.0) 09/09/17 20:37 INR 1.02 (0.83-1.16) 09/09/17 20:37 - Physical Exam Constitutional: no apparent distress, appears nourished, not in pain Eyes: PERRL Ears, Nose, Mouth, Throat: hearing normal Cardiovascular: regular rate and rhythym Respiratory: no respiratory distress Skin: warm Musculoskeletal: generalized weakness Neurologic: AAOx3 Psychiatric: interacting appropriately, not anxious ICD10 Worksheet Patient Problems: Problems Problem Status Onset Fever Acute Pyelonephritis Acute
--- NOTE | 2017-09-13 14:31 | GDS ---
[f rep st] DISCHARGE SUMMARY DISCHARGE DIAGNOSES: 1. Acute right-sided pyelonephritis with sepsis. 2. Atrophic right kidney with ureteral stricture. 3. Coronary artery disease. 4. Chronic obstructive pulmonary disease. 5. Hypertension. 6. Vaginal yeast infection status post miconazole. CONSULTATIONS: Emery Painting MD. HISTORY: Briefly, the patient is a very sweet 86-year-old woman who has a history of hypertension, C OPD, TIA who presented to the emergency room with fever, nausea, vomiting, right flank pain. She was seen in the emergency room earlier and diagnosed with pyelonephritis and discharged on oral Keflex. Her symptoms woke her up from sleep in the morning and she had sudden severe right flank pain. She developed fever and had nausea with multiple episodes of vomiting. She was treated with IV ceftriaxo ne. Due to her history of having Pseudomonas on past culture, she was treated with cefepime. She was seen by the Infectious Disease team and recommendation was to continue treatment with cefepime. She improved throughout her stay. She was seen and evaluated by the Infectious Disease team. It was not ed that her urine culture grew out E coli and Klebsiella pneumonia. The E coli was resistant to the cefepime, but she improved. At this time, we will discharge her home on Augmentin to treat the Klebs iella pneumoniae in her urine. HOSPITAL COURSE: 1. Acute right pyelonephritis with sepsis, resolved. She is markedly improved. She will be dischar ged on Augmentin for 14 days. 2. Atrophic right kidney with ureteral stricture. The previous provider spoke with urology; they did not recommend any further imaging. This is limited by nonfunctional kidney. I have reviewed this w ith the family. 3. Coronary artery disease, on Plavix. 4. COPD. Symbicort. 5. Hypertension. Home medications resumed. 6. Vaginal yeast infection, resolved. DISCHARGE CONDITION: Stable. Blood pressure is 143/77, heart rate is 82, respiratory rate is 15, O2 sats on room air 92%, temperature is 36.5 Celsius. MEDICATIONS AT DISCHARGE: Please see the EMR. DISCHARGE INSTRUCTIONS: 1. To take the antibiotic as prescribed. 2. Reviewed signs or symptoms of Clostridium difficile because she will be on this for a long treatm ent. 3. If she develops fever, chills, worsening flank pain, to return to the emergency room. Greater than 30 minutes discharging and coordinating the patient's care. /[id number]/MODL
== END 2017-09-13 14:15 | disposition home or self-care (01) | DRG 872 ==
LOC: F3E 22:11
PROVIDERS: ADMIT Hospitalist; ATTEND Hospitalist
DX: A41.9 Sepsis, unspecified organism (principal); N10 Acute pyelonephritis; B96.20 Unspecified Escherichia coli [E. coli] as the cause of diseases classified elsewhere; B96.1 Klebsiella pneumoniae [K. pneumoniae] as the cause of diseases classified elsewhere; N26.1 Atrophy of kidney (terminal); N13.5 Crossing vessel and stricture of ureter without hydronephrosis; I25.10 Atherosclerotic heart disease of native coronary artery without angina pectoris; J44.9 Chronic obstructive pulmonary disease, unspecified; J45.909 Unspecified asthma, uncomplicated; I10 Essential (primary) hypertension; E03.9 Hypothyroidism, unspecified; B37.3 Candidiasis of vulva and vagina; I25.2 Old myocardial infarction; Z86.73 Personal history of transient ischemic attack (TIA), and cerebral infarction without residual deficits; Z79.02 Long term (current) use of antithrombotics/antiplatelets; Z79.51 Long term (current) use of inhaled steroids
CPT/HCPCS: 96365; 97161-GP; 97165-GO; 97535-GO; G8978-GP-CI; G8979-GP-CI; G8980-GP-CI; G8987-GO-CI; G8988-GO-CI; G8989-GO-CI; J0692; J0696; J1650; J7613; Q9967

== ENCOUNTER 2017-12-27 21:40 | Inpatient (IN) | payer OTHER, MEDICARE ==
[2017-12-27 22:16] LABS: PLATELET COUNT 148 10^3/uL (150-400)
[2017-12-27] MEDS ORDERED: ERTAPENEM 1 GM in NS 100 ML IV ONE (22:29)
--- NOTE | 2017-12-27 22:33 | EDPHY ---
H & P Stated Complaint: FEVER, WEAKNESS NOT EATING WELL. SEEN @ PMD TODAY Time Seen by Provider: 12/27/17 21:55 HPI/ROS: CHIEF COMPLAINT: Fever, nausea, decreased appetite, urinary frequency HISTORY OF PRESENT ILLNESS: The patient presents the ED with a 2 day history of fever to 102 degrees, nausea, decreased appetite, global weakness and urinary frequency. Patient does have a history of a ESBL pyelonephritis requiring hospitalization earlier this year. The patient was evaluated by her PCP today noted to have leukocytosis and evidence of a recurrent UTI. Dr. Lopez from Infectious Disease has recommended the patient be admitted to the hospital for IV Invanz. The patient denies any significant flank pain, vomiting or cough. The patient does complain of global weakness. She denies history of fall or trauma. She denies acute headache. REVIEW OF SYSTEMS: A comprehensive 10 point review of systems is otherwise negative aside from elements mentioned in the history of present illness. Source: Patient, Family - Personal History Current Tetanus/Diphtheria Vaccine: Yes Current Tetanus Diphtheria and Acellular Pertussis (TDAP): Yes - Medical/Surgical History Hx Asthma: No Hx Chronic Respiratory Disease: Yes Hx Diabetes: No Hx Cardiac Disease: No Hx Renal Disease: No Hx Cirrhosis: No Hx Alcoholism: No Hx HIV/AIDS: No Hx Splenectomy or Spleen Trauma: No Other PMH: htn, BAD KIDNEY. hypothyroid. asthma/copd. TIA, [place] 2013 - Social History Smoking Status: Former smoker - Physical Exam Exam: General Appearance: Alert, no distress Eyes: Pupils equal and round no pallor or injection ENT, Mouth: Mucous membranes moist Respiratory: There are no retractions, lungs are clear to auscultation Cardiovascular: Regular rate and rhythm Gastrointestinal: Abdomen is soft and nontender, no masses, bowel sounds normal Neurological: 5/5 strength all 4 extremities Skin: Warm and dry, no rashes Musculoskeletal: Neck is supple nontender Extremities: symmetrical, full range of motion Constitutional: Initial Vital Signs Temperature (C) 37.5 C 12/27/17 21:42 Heart Rate 90 12/27/17 21:42 Respiratory Rate 18 12/27/17 21:42 Blood Pressure 105/55 L 12/27/17 21:42 O2 Sat (%) 91 L 12/27/17 21:42 O2 Delivery Mode Room Air O2 (L/minute) 3 Allergies/Adverse Reactions: No Known Allergies Allergy (Unverified 12/27/17 21:49) Home Medications: Medication Instructions Recorded Albuterol Sulfate 2.5 mg IH BID 09/09/17 Albuterol [Proventil Inhaler HFA 2 puffs IH Q4 PRN 09/09/17 (*)] Atorvastatin Calcium [Lipitor 40 40 mg PO HS 09/09/17 mg (*)] Budesonide/Formoterol 160/4.5 2 puffs IH DAILY 09/09/17 [Symbicort 160-4.5 Mcg Inh (*)] Carvedilol [Coreg (*)] 12.5 mg PO BIDMEAL 09/09/17 Clopidogrel Bisulfate [Plavix (*)] 75 mg PO HS 09/09/17 Ferrous Sulfate [Ferrous Sulf 325 325 mg PO HS 09/09/17 MG (*)] Fluticasone Nasal [Flonase Nasal 1 sprays NASAL DAILY PRN 09/09/17 [place]] Furosemide [Lasix 20 MG (*)] 20 mg PO DAILY 09/09/17 Levothyroxine [Synthroid 75 mcg 75 mcg PO DAILY06 09/09/17 (*)] Miconazole Nitrate 2% [Micatin 2% 1 chelsie TP BID PRN 09/09/17 Cream (*)] Montelukast Sodium [Singulair 10 10 mg PO DAILY@1800 09/09/17 mg (*)] [place]-3 Fatty Acids [Fish Oil 1000 2,000 mg PO HS 09/09/17 mg (*)] Pantoprazole Sodium [Protonix 40mg 40 mg PO DAILY 09/09/17 (*)] Potassium Cl [Klor-Con 10 meq (RX)] 10 meq PO DAILY 09/09/17 Psyllium Husk (with Sugar) 1 each PO DAILY 09/09/17 [Metamucil Packet] Quinapril HCl [Accupril 40 MG] 40 mg PO DAILY 09/09/17 amLODIPine BESYLATE [Amlodipine 5 mg PO HS 09/09/17 Besylate] Cephalexin [Keflex (*)] 500 mg PO QID 12/27/17 Medical Decision Making ED Course/Re-evaluation: The patient has no evidence of septic physiology emergency department. She has a normal blood pressure, heart rate and temperature here currently. Blood cultures x2 are obtained. Patient is noted to have slightly worsening chronic hyponatremia. Creatinine is 1.3. Urine culture is pending. The patient is given 1 g of IV Invanz. The patient will be admitted to the hospital for observation this evening. Consultation is made with Dr. Shabazz who will admit the patient. I reviewed the patient's chest x-ray done earlier today which demonstrates no evidence of an obvious pneumonia. Differential Diagnosis: Differential diagnosis considered includes pyelonephritis, bacteremia, dehydration, metabolic abnormality, viral syndrome, pneumonia - Data Points Laboratory Results: Laboratory Results 12/27/17 22:00 12/27/17 22:00 12/27/17 12/27/17 22:00 22:00 WBC 18.03 10^3/uL H 10^3/uL (3.80-9.50) RBC 3.66 10^6/uL L 10^6/uL (4.18-5.33) Hgb 11.7 g/dL L g/dL (12.6-16.3) Hct 33.7 % L % (38.0-47.0) MCV 92.1 fL fL (81.5-99.8) MCH 32.0 pg pg (27.9-34.1) MCHC 34.7 g/dL g/dL (32.4-36.7) RDW 14.9 % % (11.5-15.2) Plt Count 148 10^3/uL L 10^3/uL (150-400) MPV 8.8 fL fL (8.7-11.7) Neut % (Auto) 93.2 % H % (39.3-74.2) Lymph % (Auto) 2.0 % L % (15.0-45.0) [place] % (Auto) 3.8 % L % (4.5-13.0) Eos % (Auto) 0.0 % L % (0.6-7.6) Baso % (Auto) 0.2 % L % (0.3-1.7) Nucleat RBC Rel Count 0.0 % % (0.0-0.2) Absolute Neuts (auto) 16.80 10^3/uL H 10^3/uL (1.70-6.50) Absolute Lymphs (auto) 0.36 10^3/uL L 10^3/uL (1.00-3.00) Absolute Monos (auto) 0.69 10^3/uL 10^3/uL (0.30-0.80) Absolute Eos (auto) 0.00 10^3/uL L 10^3/uL (0.03-0.40) Absolute Basos (auto) 0.04 10^3/uL 10^3/uL (0.02-0.10) Absolute Nucleated RBC 0.00 10^3/uL 10^3/uL (0-0.01) Immature Gran % 0.8 % % (0.0-1.1) Immature Gran # 0.14 10^3/uL H 10^3/uL (0.00-0.10) RBC/WBC/PLT Morphology TNP Platelet Estimate TNP Sodium 122 mEq/L L mEq/L (135-145) Potassium 4.0 mEq/L mEq/L (3.3-5.0) Chloride 92 mEq/L L mEq/L (97-110) Carbon Dioxide 21 mEq/l L mEq/l (22-31) Anion Gap 9 mEq/L mEq/L (8-16) BUN 24 mg/dL H mg/dL (7-23) Creatinine 1.3 mg/dL H mg/dL (0.6-1.0) Estimated GFR 39 Glucose 145 mg/dL H mg/dL (70-100) Calcium 9.1 mg/dL mg/dL (8.5-10.4) Medications Given: Discontinued Medications Sodium Chloride (Ns) 1,000 mls @ 0 mls/hr IV EDNOW ONE; Wide Open PRN Reason: Protocol Stop: 12/27/17 22:35 Last Admin: 12/27/17 22:39 Dose: 1,000 mls Departure - Departure Disposition: [facility] Inpatient Acute Clinical Impression: Fever, Cystitis Condition: Good
[2017-12-27] MEDS ORDERED: NS 1,000 ML IV ONE (22:34)
[2017-12-27] MEDS ORDERED: ONDANSETRON 4 MG/2 ML VIAL IVP PRN (22:43)
[2017-12-27] MEDS ORDERED: ACETAMINOPHEN 325 MG TAB PO PRN (22:43)
[2017-12-27] MEDS ORDERED: ONDANSETRON DISINTEGRATING 4 MG TAB PO PRN (22:43)
--- NOTE | 2017-12-28 02:16 | PDGENHP ---
History and Physical - Chief Complaint UTI - History of Present Illness 87 yo F w/ HTN, TIA, and COPD presents from PCP office with diagnosis of UTI. Patient has had fever, urinary frequency, and mildly decreased cognition for about 2 days. She presented to her PCP who obtained a grossly infectious UA. Patient has hx of ESBL UTI's, most recently in August of this year. Under direction of Dr. Whitaker from infectious disease, she was directed to the ED for Invanz IV in order to cover the possiblity of recurrent ESBL. At the tiem of my evaluation patient is feeling well and has no complaints aside from fatigue. Case discussed with Dr. Jonathon Sun, previous records reviewed History Information - Allergies/Home Medication List Allergies/Adverse Reactions: No Known Allergies Allergy (Unverified 12/27/17 21:49) Home Medications: Albuterol Sulfate 2.5 mg IH BID 09/09/17 [Last Taken 09/08/17] Albuterol [Proventil Inhaler HFA (*)] 2 puffs IH Q4 PRN 09/09/17 [Last Taken 05/19] Atorvastatin Calcium [Lipitor 40 mg (*)] 40 mg PO HS 09/09/17 [Last Taken ] Budesonide/Formoterol 160/4.5 [Symbicort 160-4.5 Mcg Inh (*)] 2 puffs IH DAILY 09/09/17 [Last Taken 09/08/17] Carvedilol [Coreg (*)] 12.5 mg PO BIDMEAL 09/09/17 [Last Taken 09/08/17] Clopidogrel Bisulfate [Plavix (*)] 75 mg PO HS 09/09/17 [Last Taken 09/08/17] Ferrous Sulfate [Ferrous Sulf 325 MG (*)] 325 mg PO HS 09/09/17 [Last Taken 04/18] Fluticasone Nasal [Flonase Nasal [place]] 1 sprays NASAL DAILY PRN 09/09/17 [Last Taken Unknown] Furosemide [Lasix 20 MG (*)] 20 mg PO DAILY 09/09/17 [Last Taken 09/08/17] Levothyroxine [Synthroid 75 mcg (*)] 75 mcg PO DAILY06 09/09/17 [Last Taken 04/18] Miconazole Nitrate 2% [Micatin 2% Cream (*)] 1 chelsie TP BID PRN 09/09/17 [Last Taken 09/08/17] Montelukast Sodium [Singulair 10 mg (*)] 10 mg PO DAILY@1800 09/09/17 [Last Taken 09/08/17] Halma-3 Fatty Acids [Fish Oil 1000 mg (*)] 2,000 mg PO HS 09/09/17 [Last Taken 09/08/17] Pantoprazole Sodium [Protonix 40mg (*)] 40 mg PO DAILY 09/09/17 [Last Taken 04/18] Potassium Cl [Klor-Con 10 meq (RX)] 10 meq PO DAILY 09/09/17 [Last Taken ] Psyllium Husk (with Sugar) [Metamucil Packet] 1 each PO DAILY 09/09/17 [Last Taken 09/08/17] Quinapril HCl [Accupril 40 MG] 40 mg PO DAILY 09/09/17 [Last Taken 09/08/17] amLODIPine BESYLATE [Amlodipine Besylate] 5 mg PO HS 09/09/17 [Last Taken ] Cephalexin [Keflex (*)] 500 mg PO QID 12/27/17 [Last Taken Unknown] I have personally reviewed and updated: family history, medical history - Past Medical History COPD, hypertension, TIA - Surgical History Additional surgical history: R CEA - Family History Positive for: hypertension - Social History Smoking Status: Former smoker Review of Systems Review of Systems: ROS: 10pt was reviewed & negative except for what was stated in HPI & below Physical Exam Physical Exam: Temp Pulse Resp BP Pulse Ox 37.4 C 80 16 105/57 L 98 12/27/17 23:30 12/27/17 23:30 12/27/17 23:30 12/27/17 23:30 12/27/17 23:30 O2 (L/minute) 2 Constitutional: no apparent distress, not in pain Eyes: PERRL, EOMI Ears, Nose, Mouth, Throat: moist mucous membranes, no oral mucosal ulcers Cardiovascular: regular rate and rhythym, systolic murmur Respiratory: no respiratory distress, no rales or rhonchi Gastrointestinal: normoactive bowel sounds, soft, non-tender abdomen Skin: warm, normal color Musculoskeletal: full muscle strength, no muscle tenderness Neurologic: AAOx3, CN II-XII Intact Psychiatric: interacting appropriately, not anxious Lab Data & Imaging Review 12/27/17 22:00 12/27/17 22:00 WBC 18.03 10^3/uL (3.80-9.50) H 12/27/17 22:00 RBC 3.66 10^6/uL (4.18-5.33) L 12/27/17 22:00 Hgb 11.7 g/dL (12.6-16.3) L 12/27/17 22:00 Hct 33.7 % (38.0-47.0) L 12/27/17 22:00 MCV 92.1 fL (81.5-99.8) 12/27/17 22:00 MCH 32.0 pg (27.9-34.1) 12/27/17 22:00 MCHC 34.7 g/dL (32.4-36.7) 12/27/17 22:00 RDW 14.9 % (11.5-15.2) 12/27/17 22:00 Plt Count 148 10^3/uL (150-400) L 12/27/17 22:00 MPV 8.8 fL (8.7-11.7) 12/27/17 22:00 Neut % (Auto) 93.2 % (39.3-74.2) H 12/27/17 22:00 Lymph % (Auto) 2.0 % (15.0-45.0) L 12/27/17 22:00 Brooks % (Auto) 3.8 % (4.5-13.0) L 12/27/17 22:00 Eos % (Auto) 0.0 % (0.6-7.6) L 12/27/17 22:00 Baso % (Auto) 0.2 % (0.3-1.7) L 12/27/17 22:00 Nucleat RBC Rel Count 0.0 % (0.0-0.2) 12/27/17 22:00 Absolute Neuts (auto) 16.80 10^3/uL (1.70-6.50) H 12/27/17 22:00 Absolute Lymphs (auto) 0.36 10^3/uL (1.00-3.00) L 12/27/17 22:00 Absolute Monos (auto) 0.69 10^3/uL (0.30-0.80) 12/27/17 22:00 Absolute Eos (auto) 0.00 10^3/uL (0.03-0.40) L 12/27/17 22:00 Absolute Basos (auto) 0.04 10^3/uL (0.02-0.10) 12/27/17 22:00 Absolute Nucleated RBC 0.00 10^3/uL (0-0.01) 12/27/17 22:00 Immature Gran % 0.8 % (0.0-1.1) 12/27/17 22:00 Immature Gran # 0.14 10^3/uL (0.00-0.10) H 12/27/17 22:00 RBC/WBC/PLT Morphology TNP 12/27/17 22:00 Platelet Estimate TNP 12/27/17 22:00 Sodium 122 mEq/L (135-145) L 12/27/17 22:00 Potassium 4.0 mEq/L (3.3-5.0) 12/27/17 22:00 Chloride 92 mEq/L (97-110) L 12/27/17 22:00 Carbon Dioxide 21 mEq/l (22-31) L 12/27/17 22:00 Anion Gap 9 mEq/L (8-16) 12/27/17 22:00 BUN 24 mg/dL (7-23) H 12/27/17 22:00 Creatinine 1.3 mg/dL (0.6-1.0) H 12/27/17 22:00 Estimated GFR 39 12/27/17 22:00 Glucose 145 mg/dL (70-100) H 12/27/17 22:00 Serum Osmolality 263 mosmo/kg (280-297) L 12/27/17 22:00 Calcium 9.1 mg/dL (8.5-10.4) 12/27/17 22:00 Visualized and Interpreted Chest x-ray results: Yes Chest X-Ray results: no infiltrate Assessment & Plan Assessment: 87 yo F w/ hx of HTN, COPD, and prior TIA p/w UTI. Plan: 1. UTI - Fever and urinary frequency x2 days; patient reports fever at home but none so far while here. WBC of 18k on admission; she denies flank pain. Her history is notable for ESBL E. Coli on multiple occasions. - Ertapenem IV per ID, appreciate assistance - Blood and urine cultures pending 2. JACKY - Serum creatinine 1.3 on admission, this is possibly related to infection and dehydration in the setting of ongoing furosemide therapy. - S/p 1 L NS in the ED, repeat BMP in the AM - Hold furosemide - Renally dose medications, avoid nephrotoxic agents 3. Acute on chronic hyponatremia - Serum sodium 122 on admission; baseline appears to be in 128-130 range. Most likely etiology is hypovolemic noting ongoing infection and JACKY. - Recheck BMP in the morning after fluid bolus - Urine lytes and serum/urine Osms ordered 4. HTN - Hold ARB and furosemide until renal function recovers; needs med reconciliation. 5. COPD - Continue home medications 6. Hx TIA - S/p CEA; continue home medications Diet - Regular Code - Full Ppx - SQH Dispo - Admit under observation status
[2017-12-28] MEDS: ALBUTEROL 3 ML DEYVIAL IH PRN ×3 (03:52→16:54)
[2017-12-28 05:02] LABS: PLATELET COUNT 129 10^3/uL (150-400)
[2017-12-28] MEDS: HEPARIN 5,000 UNIT/0.5 ML INJ SC SCH ×3 (06:16→22:28)
[2017-12-28] MEDS ORDERED: ALBUTEROL 60 PUFFS/8 GM MDI IH PRN (08:39)
[2017-12-28] MEDS ORDERED: FLUTICASONE NASAL 120 SPRAYS/16 GM MDI NS PRN (08:39)
[2017-12-28] MEDS ORDERED: ALBUTEROL 3 ML DEYVIAL IH SCH (09:00)
--- NOTE | 2017-12-28 09:55 | HOSPPROG ---
Hospitalist Progress Note Assessment/Plan: 87 yo F w/ hx of HTN, COPD, and prior TIA p/w UTI. First encounter, chart reviewed. D/W Dr Whitaker. Plan: 1. UTI - Fever and urinary frequency x2 days; -urine cx done at PCP -WBC of 18k on admission; - Her history is notable for ESBL E. Coli on multiple occasions. - Ertapenem IV per ID, appreciate assistance - Blood and urine cultures pending -contact precautions 2. JACKY - Serum creatinine 1.3 on admission, this is possibly related to infection and dehydration in the setting of ongoing furosemide therapy. - S/p 1 L NS in the ED -creatine donw to 1.1 - Hold furosemide - Renally dose medications, avoid nephrotoxic agents 3. Acute on chronic hyponatremia - Serum sodium 122 on admission; baseline appears to be in 128-130 range. Most likely etiology is hypovolemic noting ongoing infection and JACKY. - NA up to 128 with hydration - Urine na 9 4. HTN - Hold ARB and furosemide until renal function recovers; 5. COPD - Continue home medications 6. Hx TIA - S/p CEA; continue home medications 7. E.coli bacteremia -cont invanz Diet - Regular Code - Full Ppx - SQH Dispo - requires further IV abx change to inpt status. Subjective: Feeling better. No pain. Slept well. Objective: Vital Signs Temp Pulse Resp BP Pulse Ox 37.4 C 87 16 121/56 H 97 12/28/17 07:40 12/28/17 07:40 12/28/17 07:40 12/28/17 07:40 12/28/17 07:40 Laboratory Results 12/28/17 04:23 12/28/17 04:23 12/27/17 12/28/17 12/29/17 05:59 05:59 05:59 Intake Total 600 Balance 600 - Physical Exam Constitutional: no apparent distress, appears nourished, not in pain Eyes: PERRL, anicteric sclera, EOMI Ears, Nose, Mouth, Throat: moist mucous membranes, hearing normal, ears appear normal Cardiovascular: regular rate and rhythym, No JVD, No edema Respiratory: no respiratory distress, no rales or rhonchi, reduced air movement Gastrointestinal: normoactive bowel sounds, No tenderness, No ascites Skin: warm, normal color, No mottled Musculoskeletal: normal joint ROM, no joint effusions, generalized weakness Neurologic: AAOx3 Psychiatric: interacting appropriately, not anxious, not encephalopathic, thought process linear ICD10 Worksheet Patient Problems: Problems Problem Status Onset Pyelonephritis Acute Fever Acute Cystitis Acute
[2017-12-28] MEDS: OMEGA-3 FATTY ACIDS 1,000 MG CAP PO SCH (10:30)
[2017-12-28] MEDS: PSYLLIUM METAMUCIL 1 PKT PO SCH (10:30)
[2017-12-28] MEDS: LEVOTHYROXINE 75 MCG TAB PO SCH (10:30)
[2017-12-28] MEDS: BUDESONIDE/FORMOTEROL 160/4.5 60 PUFFS/MDI IH SCH (10:40)
--- NOTE | 2017-12-28 11:40 | GCON ---
[f rep st] CONSULTATION INFECTIOUS DISEASE CONSULT REFERRING PHYSICIAN: Benjamin Shabazz MD REASON FOR CONSULT: To assist in the management of this 87-year-old female, well known to our service with recurrent complicated urinary tract infection. HISTORY OF PRESENT ILLNESS: The patient is a very pleasant 87-year-old female whose previous medical history is notable for the followin. Hypertension. 2. TIAs. 3. COPD, not on chronic oxygen. 4. Hypothyroidism. 5. History of pyelonephritis of the right kidney in August of this year with urine culture positive for both ESBL E coli 20,000-30,000 colonies, and 4000 colony-forming units of Klebsiella pneumoniae. The patient improved with cefepime, and was ultimately treated with 14 days of Augmentin as Klebsiella pneumoniae felt to be the major player in her pyelonephritis and not the ESBL E coli, which was not targeted. 6. History of recurrent complicated urinary tract infection in September while on a cruise. The patient had to leave the cruise when she developed symptoms of urinary frequency in September. She was treated in [place]. A urine culture grew greater than 100,000 colonies of ESBL E coli susceptible to nitrofurantoin and this was used for treatment for 10 days. Regarding her present issues, the patient was in her usual state of excellent health until a few days ago, when she began to feel nauseated and fatigued. She then developed increased urinary frequency and tried to hydrate herself better. She woke up on , still feeling unwell and saw Dr. Duke. In the office, the patient was febrile to 102. A chest x-ray was normal, but her white blood cell count was 16,000. She was sent home on Keflex. I was called last evening by the patient's daughter concerned for recurrent ESBL complicated urinary tract infection. Given the given the fact that the patient is 87 with a fever of 103 and a white blood cell count of 16,000, I recommended they immediately go to the emergency room for further evaluation and treatment and hospital admission. I called the emergency room and recommended that blood cultures be drawn, and the patient started on ertapenem. In the emergency room , the patient was afebrile with a stable blood pressure and heart rate. Blood cultures were drawn and she was given a gram of ertapenem. Notable labs include a white blood cell count up to 18,000, and a platelet count of a 148. No imaging was performed. She was admitted to [facility] for further evaluation and treatment. I am now asked to assist in her care. The patient feels anorectic and not really better compared with yesterday. She is no longer having urinary frequency, per se. No discomfort when she urinates. She has not had vomiting, but does not feel hungry at all. Her daughter reports that she has had increased work of breathing when she has a fever. She does have a chronic cough that is nonproductive with her history of COPD. She denies a sore throat, headache, chest pain, abdominal pain or flank pain. No discharge from her vagina. She does not have a pessary. REVIEW OF SYSTEMS: The patient has felt chilled. Aside from what is listed above, 10 systems are reviewed and all are negative. PREVIOUS MEDICAL HISTORY: As outlined above. MEDICATIONS: Presently include ertapenem, she was given a gram last night. Amlodipine 5 mg h.s., Proventil, Tylenol, Coreg 12.5 mg p.o. b.i.d., Plavix 75 mg p.o. h.s., levothyroxine 75 mcg p.o. daily, Flonase, ferrous sulfate 325 h.s. , Zofran. ALLERGIES: No known drug allergies. SOCIAL HISTORY: The patient lives with her daughter, who is a labor and delivery nurse, and the patient's daughter's . They do have a small dog. Recent travel to [place] in September, but the patient had to be taken off the cruise prematurely secondary to recurrent ESBL E coli complicated urinary tract infection as outlined above. The patient does not smoke and rarely drinks alcohol. FAMILY HISTORY: Noncontributory. PHYSICAL EXAM: VITAL SIGNS: T-current 37.4, T-max 103 per the patient's daughter yesterday. Heart rate 87, blood pressure 121/56, 97% on 2 L. General: Flushed appearing elderly female, lying in bed, nontoxic. HEENT: Atraumatic, normocephalic. She is wearing glasses. Pupils equal, round, reactive to light. Extraocular movements are intact. She does have what appears to be very mild scleral icterus. Her cheeks are flushed. There is no sinus tenderness or discharge from the nares. Mucous membranes are moist. She does have false upper and lower teeth. No oral lesions noted. No thrush. Trachea is midline. No thyromegaly. No cervical or supraclavicular lymphadenopathy. Cardiovascular: Distant heart sounds, S1, S2. No tachycardia. No rubs, gallops, or murmurs. Lungs: The patient is wearing an oxygen cannula. Mildly increased respiratory effort. Distant lung sounds and poor inspiratory effort. Back: No spinous process tenderness. No CVA tenderness at all. Abdomen: Slightly distended. Soft. No tenderness to palpation. Extremities: No clubbing, cyanosis, or edema. No muscle belly tenderness. 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 Skin: Warm and dry. No rashes. Facial flushing as outlined above. Neurologic: She is alert and oriented x3. No sensory or motor deficits. She is moving all 4 extremities. LABORATORY DATA: Microbiologic data: Blood cultures x2 yesterday are pending. Urine culture is also pending. Urine culture from September 10, 2017, grew 2000 CFUs of ESBL E coli, resistant to the tetracyclines, resistant to quinolones, and susceptible to carbapenems. Urine culture September 09 grew ESBL E coli, Klebsiella pneumoniae. Klebsiella pneumoniae susceptible to everything except for nitrofurantoin. White blood cell count of 15, down from 18, hematocrit 30, platelet count of 129, 93% neutrophils. BUN and creatinine 22/1.2, slightly down from 1.3 on admission. The patient's baseline creatinine is 0.6. No liver function tests were performed. Urinalysis yesterday showed 2+ protein, 2 + blood, 3+ leukocyte esterase, with 15-25 red cells, 50-182 whites. RADIOGRAPHIC DATA: Chest x-ray yesterday afternoon, PA and lateral showed no evidence of pneumonia or pleural effusion. Previous abdominal CT, September 09, 2017, with intravenous contrast only showed severe atrophic right kidney with scarring and evidence of pyelitis of the right upper urinary tract as evidenced by dilation, abnormal urothelial enhancement and reactive stranding around the right kidney and right ureter. No obstructing ureteral calculi or mass was seen. IMPRESSION: 87-year-old female with complicated upper urinary tract infection (temperature to 103 intimates upper tract disease), likely secondary to recurrent infection with extended-spectrum beta-lactamase Escherichia coli. Other potential pathogens include Klebsiella pneumoniae, or other enteric gram negatives. She does have a history of Pseudomonas in 2017. Of note, the patient's CT scan of the abdomen and pelvis in August did not show any evidence of nephrolithiasis, or renal abscess. PLAN: 1. Continue Ertapenem for now pending urine culture results, but dose reduce for creatinine clearance of 26 to 0.5 g IV daily. 2. Continue contact isolation as you are. 3. Blood cultures are pending. 4. Obtain renal ultrasound; do not feel that she requires repeat CT scan at this point in time unless she clinically deteriorates as no evidence of obstructing stones in August. Thank you very much for consulting Infectious Diseases. We will continue to follow this patient with you. /[id number]/MODL MTDD
--- NOTE | 2017-12-28 13:19 | ASMTCMCOM ---
CM Note CM Note Notes: Pt's chart reviewed for D/C planning. Pt is an 86 y/o female who was sent to the ED by her PCP's office following the detection of a UTI. Pt has a hx of ESBL E Coli UTI's. Pt lives with her daughter, Melony #[phone] and Melony's Yumiko #[phone]. Pt was hospitalized for a UTI 09/09 and when D/Neftali on 09/13 there were no CM needs identified. CM spoke with [id number] (Pt was asleep). Per Yumiko, Pt at this time has no CM needs. She will be returning to live with her daughter and [id number] and no current CM needs have been identified. It is expected that she will be independent. CM will follow. D/C Plan: It is anticipated Pt will D/C independently. Date Signed: 12/28/2017 01:18 PM Electronically Signed By:Sneha Stein
[2017-12-28] MEDS: CARVEDILOL 6.25 MG TAB PO SCH (18:11)
[2017-12-28] MEDS ORDERED: ERTAPENEM 1 GM in NS 100 ML IV SCH (21:00)
[2017-12-28] MEDS: CLOPIDOGREL BISULFATE 75 MG TAB PO SCH (21:03)
[2017-12-28] MEDS: ATORVASTATIN CALCIUM 40 MG TAB PO SCH (21:03)
[2017-12-28] MEDS: MONTELUKAST SODIUM 10 MG TAB PO SCH (21:04)
[2017-12-28] MEDS: FERROUS SULFATE 325 MG TAB PO SCH (21:04)
[2017-12-28] MEDS: amLODIPine BESYLATE 5 MG TAB PO SCH (21:04)
[2017-12-28] MEDS ORDERED: ERTAPENEM 0.5 GM in NS 100 ML IV SCH (22:00)
[2017-12-29] MEDS: LEVOTHYROXINE 75 MCG TAB PO SCH (05:48)
[2017-12-29] MEDS: HEPARIN 5,000 UNIT/0.5 ML INJ SC SCH ×3 (05:48→22:41)
[2017-12-29] MEDS: CARVEDILOL 6.25 MG TAB PO SCH ×2 (08:30→17:49)
[2017-12-29] MEDS: BUDESONIDE/FORMOTEROL 160/4.5 60 PUFFS/MDI IH SCH (09:15)
[2017-12-29] MEDS: ALBUTEROL 3 ML DEYVIAL IH PRN (09:15)
[2017-12-29] MEDS: PSYLLIUM METAMUCIL 1 PKT PO SCH (10:11)
[2017-12-29] MEDS: OMEGA-3 FATTY ACIDS 1,000 MG CAP PO SCH (10:11)
--- NOTE | 2017-12-29 12:51 | PCMIDPN ---
Assessment/Plan: Assessment/Plan: * ESBL producing E coli pyelonephritis/bacteremia: Clinically improved with ertapenem therapy. White blood cell count has decreased with antibiotics. Anticipate 14 days total of ertapenem. Anticipate PICC line on Sunday once has received additional antibiotic therapy. Previous CT scan reviewed with question of stricture or reflux which could potentially contribute to recurrent UTI. Will consider repeat CT to reassess this prior to hospital discharge ( will discuss with Radiology question of the CT urogram). Time spent, greater than 35 min, of which greater than half was spent in education/counseling/coordination of care related to ESBL E coli bacteremia, pathophysiology of recurrent UTI, and ongoing plan of care. 12/29/17 12:47 Subjective: Overall patient feels better although significantly fatigued and with poor appetite. Daughter notes she has improved significantly. Objective: Vital Signs Temp Pulse Resp BP Pulse Ox 36.6 C 78 16 91/46 L 92 12/29/17 12:00 12/29/17 12:00 12/29/17 12:00 12/29/17 12:00 12/29/17 12:00 Laboratory Results 12/29/17 04:27 12/29/17 04:27 12/28/17 12/29/17 12/30/17 05:59 05:59 05:59 Intake Total 600 450 Output Total 450 Balance 600 0 Ertapenem # 3 Blood cultures 2/2 E coli Urine culture ESBL producing E coli - Physical Exam General Appearance: alert, no apparent distress EENT: dry mucous membranes, No scleral icterus, No thrush Abdomen: non-tender, No distended Back: No CVA tenderness ICD10 Worksheet Patient Problems: Problems Problem Status Onset Cystitis Acute Fever Acute Pyelonephritis Acute
--- NOTE | 2017-12-29 16:16 | HOSPPROG ---
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 -consider repeat CT * ARF - improved -hold quinapril and lasix * Hyponatremia - chronic -improved from admission * TIA -Plavix * COPD -Symbicort Subjective: Much better Objective: Vital Signs Temp Pulse Resp BP Pulse Ox 37.4 C 88 16 94/40 L 91 L 12/29/17 15:52 12/29/17 15:52 12/29/17 15:52 12/29/17 15:52 12/29/17 15:52 Laboratory Results 12/29/17 04:27 12/29/17 04:27 12/28/17 12/29/17 12/30/17 05:59 05:59 05:59 Intake Total 600 450 Output Total 450 Balance 600 0 Old chart reviewed - possible urethral stricture/obstruction of right kidney noted last stay ABD US - right kidney atrophic - Physical Exam Constitutional: no apparent distress, appears nourished, not in pain Cardiovascular: regular rate and rhythym, no murmur, rub, or gallop Respiratory: no respiratory distress, no rales or rhonchi, clear to auscultation Gastrointestinal: normoactive bowel sounds, soft, non-tender abdomen, no palpable masses Skin: no rashes or abrasions, no fluctuance, no induration Neurologic: AAOx3, sensation intact bilaterally Psychiatric: interacting appropriately, not anxious, not encephalopathic, thought process linear ICD10 Worksheet Patient Problems: Problems Problem Status Onset Cystitis Acute Fever Acute Pyelonephritis Acute
--- NOTE | 2017-12-29 16:27 | ASMTCMCOM ---
CM Note CM Note Notes: Pt will need home IV antibiotics, currently on Invanz. Referral sent to [facility] in [place] [facility]. CM will continue to follow. Date Signed: 12/29/2017 04:26 PM Electronically Signed By:KYLE Zuh
[2017-12-29] MEDS: FERROUS SULFATE 325 MG TAB PO SCH (20:19)
[2017-12-29] MEDS: CLOPIDOGREL BISULFATE 75 MG TAB PO SCH (20:19)
[2017-12-29] MEDS: ATORVASTATIN CALCIUM 40 MG TAB PO SCH (20:19)
[2017-12-29] MEDS: MONTELUKAST SODIUM 10 MG TAB PO SCH (20:19)
[2017-12-29] MEDS: amLODIPine BESYLATE 5 MG TAB PO SCH (20:21)
[2017-12-29] MEDS: ERTAPENEM 1 GM in NS 100 ML IV SCH (22:41)
[2017-12-30 05:44] LABS: PLATELET COUNT 142 10^3/uL (150-400)
[2017-12-30] MEDS: LEVOTHYROXINE 75 MCG TAB PO SCH (06:06)
[2017-12-30] MEDS: HEPARIN 5,000 UNIT/0.5 ML INJ SC SCH ×3 (06:07→21:16)
[2017-12-30] MEDS: OMEGA-3 FATTY ACIDS 1,000 MG CAP PO SCH (08:01)
[2017-12-30] MEDS: PSYLLIUM METAMUCIL 1 PKT PO SCH (08:01)
[2017-12-30] MEDS: PANTOPRAZOLE SODIUM 40 MG TAB PO SCH (08:01)
[2017-12-30] MEDS: BUDESONIDE/FORMOTEROL 160/4.5 60 PUFFS/MDI IH SCH (08:14)
--- NOTE | 2017-12-30 10:03 | HOSPPROG ---
Hospitalist Progress Note Assessment/Plan: 87 yo F w/ hx of HTN, COPD, and prior TIA p/w UTI. 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 Subjective: Feeling better today. No pain. Eating well. Objective: Vital Signs Temp Pulse Resp BP Pulse Ox 36.4 C 78 16 100/55 L 98 12/30/17 08:00 12/30/17 08:16 12/30/17 08:16 12/30/17 08:00 12/30/17 08:16 Laboratory Results 12/30/17 05:36 12/30/17 05:36 12/29/17 12/30/17 12/31/17 05:59 05:59 05:59 Intake Total 450 1900 Output Total 450 Balance 0 1900 - Physical Exam Constitutional: appears nourished, not in pain Eyes: PERRL, anicteric sclera Ears, Nose, Mouth, Throat: moist mucous membranes, hearing normal Cardiovascular: No JVD, No edema Respiratory: no respiratory distress, no rales or rhonchi Gastrointestinal: No tenderness, No ascites Skin: warm, normal color, No mottled Musculoskeletal: no joint effusions, generalized weakness Neurologic: AAOx3 Psychiatric: interacting appropriately, not anxious, not encephalopathic ICD10 Worksheet Patient Problems: Problems Problem Status Onset Pyelonephritis Acute Fever Acute Cystitis Acute
[2017-12-30] MEDS: CARVEDILOL 6.25 MG TAB PO SCH ×2 (13:21→19:06)
[2017-12-30] MEDS ORDERED: ALTEPLASE 2 MG VIAL IVP PRN (14:26)
--- NOTE | 2017-12-30 14:31 | PDIAF ---
- Diagnosis Diagnosis: ESBL E coli bacteremia/pyelonephritis Code Status: Full Code - Medication Management Discharge Medications: Medications to Continue on Transfer Albuterol Sulfate 2.5 mg IH BID 09/09/17 [Last Taken 12/27/17 21:00] Albuterol [Proventil Inhaler HFA (*)] 2 puffs IH Q4 PRN 09/09/17 [Last Taken 05/19] Atorvastatin Calcium [Lipitor 40 mg (*)] 40 mg PO HS 09/09/17 [Last Taken ] Budesonide/Formoterol 160/4.5 [Symbicort 160-4.5 Mcg Inh (*)] 2 puffs IH DAILY 09/09/17 [Last Taken 12/27/17] Carvedilol [Coreg (*)] 12.5 mg PO BIDMEAL 09/09/17 [Last Taken 12/27/17 18:00] Clopidogrel Bisulfate [Plavix (*)] 75 mg PO HS 09/09/17 [Last Taken 12/27/17] Ferrous Sulfate [Ferrous Sulf 325 MG (*)] 325 mg PO HS 09/09/17 [Last Taken ] Fluticasone Nasal [Flonase Nasal [place]] 1 sprays NASAL DAILY PRN 09/09/17 [Last Taken Unknown] Furosemide [Lasix 20 MG (*)] 20 mg PO DAILY 09/09/17 [Last Taken 12/27/17] Levothyroxine [Synthroid 75 mcg (*)] 75 mcg PO DAILY06 09/09/17 [Last Taken ] Montelukast Sodium [Singulair 10 mg (*)] 10 mg PO HS 09/09/17 [Last Taken ] [place]-3 Fatty Acids [Fish Oil 1000 mg (*)] 1,000 mg PO DAILY 09/09/17 [Last Taken 12/27/17] Pantoprazole Sodium [Protonix 40mg (*)] 40 mg PO DAILY 09/09/17 [Last Taken ] Potassium Cl [Klor-Con 10 meq (RX)] 10 meq PO DAILY 09/09/17 [Last Taken ] Psyllium Husk (with Sugar) [Metamucil Packet] 1 each PO DAILY 09/09/17 [Last Taken 12/27/17] Quinapril HCl [Accupril 40 MG] 40 mg PO DAILY 09/09/17 [Last Taken 12/27/17] amLODIPine BESYLATE [Amlodipine Besylate] 5 mg PO HS 09/09/17 [Last Taken ] [employer] Antibiotics: Ertapenem 1 g IV Q 24 hr [employer] Antibiotic Stop Date: 01/09/18 Discharge Medications: Refer to the Discharge Home Medication list for PRN reason. PICC Care - Routine: Yes - Orders Services needed: Home Nursing Home Care Face to Face: I certify that this patient was under my care and that I had the required [id number] encounter meeting the encounter requirements on the discharge day. My findings support the fact that the patient is homebound as defined in Home Care Face to Face Continued: CMS Chapter 7 Medicare Benefits Manual 30.1.1 , The condition of the patient is such that there exists a normal inability to leave home and consequently, leaving home would require a considerable and taxing effort. Isolation Type: Contact Isolation - Labs/Radiology CBC w/diff Date: 01/03/18 CMP Date: 01/03/18 Call or Fax Lab and Imaging Results to: Dr. Jain, - Follow Up Care Current Providers and Referrals: Tianna Sykes MD [Primary Care Provider] - As per Instructions
--- NOTE | 2017-12-30 15:10 | PCMIDPN ---
Assessment/Plan: Assessment/Plan: * ESBL producing E coli pyelonephritis/bacteremia: Continued clinical improvement with ertapenem. Anticipate 2 week course of ertapenem for bacteremia. Plan to place PICC line tomorrow with likely discharge to complete therapy as an outpatient. Case management evaluating treatment options of home care versus [address] [place] [address]. Plan weekly CBC and CMP on ertapenem therapy. 12/30/17 15:10 Subjective: Patient feels significantly improved. No dysuria, abdominal pain or flank pain. Objective: Vital Signs Temp Pulse Resp BP Pulse Ox 36.3 C 80 18 102/63 97 12/30/17 10:59 12/30/17 10:59 12/30/17 10:59 12/30/17 10:59 12/30/17 10:59 Laboratory Results 12/30/17 05:36 12/30/17 05:36 12/29/17 12/30/17 12/31/17 05:59 05:59 05:59 Intake Total 450 1900 Output Total 450 Balance 0 1900 Ertapenem # for Blood cultures 2/2 ESBL producing E coli Urine culture greater than 100,000 ESBL producing E coli - Physical Exam General Appearance: alert, no apparent distress EENT: No scleral icterus, No thrush Respiratory: lungs clear, No respiratory distress Cardiac/Chest: regular rate, rhythm Abdomen: non-tender, No distended Back: No CVA tenderness - Time Spent With Patient Time Spent with Patient: greater than 25 minutes Time Spent with Patient: Greater than 25 minutes spent on this patients care, greater than 50% of time spent counseling, educating, and coordinating care regarding the above mentioned plan. ICD10 Worksheet Patient Problems: Problems Problem Status Onset Cystitis Acute Fever Acute Pyelonephritis Acute
--- NOTE | 2017-12-30 15:18 | ASMTCMCOM ---
CM Note CM Note Notes: This CM received a voice message from [employer] saying that patient's Ins would not pay for home IV ABX and they could work out a cost if she wanted to go home. [facility] can't work out a cost until their Intake comes in on Sunday. Patient may decide to use [facility]. Call them Sunday [phone] Date Signed: 12/30/2017 03:17 PM Electronically Signed By:Debbi Goetz LCSW
[2017-12-30] MEDS: ATORVASTATIN CALCIUM 40 MG TAB PO SCH (21:17)
[2017-12-30] MEDS: CLOPIDOGREL BISULFATE 75 MG TAB PO SCH (21:17)
[2017-12-30] MEDS: amLODIPine BESYLATE 5 MG TAB PO SCH (21:17)
[2017-12-30] MEDS: ERTAPENEM 1 GM in NS 100 ML IV SCH (21:17)
[2017-12-30] MEDS: FERROUS SULFATE 325 MG TAB PO SCH (21:17)
[2017-12-30] MEDS: MONTELUKAST SODIUM 10 MG TAB PO SCH (21:17)
[2017-12-31] MEDS: LEVOTHYROXINE 75 MCG TAB PO SCH (05:34)
[2017-12-31] MEDS: HEPARIN 5,000 UNIT/0.5 ML INJ SC SCH ×2 (05:34→15:03)
[2017-12-31] MEDS: BUDESONIDE/FORMOTEROL 160/4.5 60 PUFFS/MDI IH SCH (08:48)
[2017-12-31] MEDS: ALBUTEROL 3 ML DEYVIAL IH PRN (08:48)
[2017-12-31] MEDS: PANTOPRAZOLE SODIUM 40 MG TAB PO SCH (09:59)
[2017-12-31] MEDS: CARVEDILOL 6.25 MG TAB PO SCH (09:59)
[2017-12-31] MEDS: OMEGA-3 FATTY ACIDS 1,000 MG CAP PO SCH (09:59)
[2017-12-31] MEDS: PSYLLIUM METAMUCIL 1 PKT PO SCH (10:00)
[2017-12-31 15:10] VITALS: BP 112/60
--- NOTE | 2017-12-31 15:13 | PDIAF ---
- Diagnosis Diagnosis: ESBL E coli bacteremia/pyelonephritis Code Status: Full Code - Medication Management Discharge Medications: Medications to Continue on Transfer Albuterol Sulfate 2.5 mg IH BID 09/09/17 [Last Taken 12/27/17 21:00] Albuterol [Proventil Inhaler HFA (*)] 2 puffs IH Q4 PRN 09/09/17 [Last Taken 05/19] Atorvastatin Calcium [Lipitor 40 mg (*)] 40 mg PO HS 09/09/17 [Last Taken ] Budesonide/Formoterol 160/4.5 [Symbicort 160-4.5 Mcg Inh (*)] 2 puffs IH DAILY 09/09/17 [Last Taken 12/27/17] Carvedilol [Coreg (*)] 12.5 mg PO BIDMEAL 09/09/17 [Last Taken 12/27/17 18:00] Clopidogrel Bisulfate [Plavix (*)] 75 mg PO HS 09/09/17 [Last Taken 12/27/17] Ferrous Sulfate [Ferrous Sulf 325 MG (*)] 325 mg PO HS 09/09/17 [Last Taken ] Fluticasone Nasal [Flonase Nasal [place]] 1 sprays NASAL DAILY PRN 09/09/17 [Last Taken Unknown] Furosemide [Lasix 20 MG (*)] 20 mg PO DAILY 09/09/17 [Last Taken 12/27/17] Levothyroxine [Synthroid 75 mcg (*)] 75 mcg PO DAILY06 09/09/17 [Last Taken ] Montelukast Sodium [Singulair 10 mg (*)] 10 mg PO HS 09/09/17 [Last Taken ] [place]-3 Fatty Acids [Fish Oil 1000 mg (*)] 1,000 mg PO DAILY 09/09/17 [Last Taken 12/27/17] Pantoprazole Sodium [Protonix 40mg (*)] 40 mg PO DAILY 09/09/17 [Last Taken ] Potassium Cl [Klor-Con 10 meq (RX)] 10 meq PO DAILY 09/09/17 [Last Taken ] Psyllium Husk (with Sugar) [Metamucil Packet] 1 each PO DAILY 09/09/17 [Last Taken 12/27/17] Quinapril HCl [Accupril 40 MG] 40 mg PO DAILY 09/09/17 [Last Taken 12/27/17] amLODIPine BESYLATE [Amlodipine Besylate] 5 mg PO HS 09/09/17 [Last Taken ] Acetaminophen [Tylenol 325mg (*)] 650 mg PO Q4HRS PRN tab 12/31/17 [Last Taken Unknown] Ertapenem [INVanz] 1 gm IV DAILY@2200 vial 12/31/17 [Last Taken Unknown] [employer] Antibiotics: Ertapenem 1 g IV Q 24 hr [facility] Antibiotic Stop Date: 01/09/18 Discharge Medications: Refer to the Discharge Home Medication list for PRN reason. PICC Care - Routine: Yes - Orders Isolation Type: Contact Isolation Diet Recommendation: no restrictions on diet - Labs/Radiology CBC w/diff Date: 01/03/18 CMP Date: 01/03/18 Call or Fax Lab and Imaging Results to: Dr. Jain, - Follow Up Care Current Providers and Referrals: Tianna Sykes MD [Primary Care Provider] - As per Instructions
--- NOTE | 2017-12-31 15:22 | ASMTLACE ---
LACE Length of stay for Answers: 3 days current admission Acuity / Level of Answers: Yes Care: Did the patient have an inpatient admission? Comorbidities - select Answers: Cerebrovascular disease all that apply (CVA, TIA, aneurysms, vasc ular dementia) Chronic pulmonary disease Previous myocardial infarction Other Notes: HTN # of Emergency department Answers: 3-4 visits in the last 6 months Score: 14 Date Signed: 12/31/2017 03:15 PM Electronically Signed By:Tiera Bustillo RN
--- NOTE | 2017-12-31 15:22 | ASMTCMCOM ---
CM Note CM Note Notes: abraham reviewed. Spoke to Doreen with [facility], patient has no infusion benefits, out of pocket cost would be 160.00 a day. The patient and her daughter Linda have elected to use the infusion center where cost will be mostly covered. Dr Michel aware. Outpatient appointments scheduled . Picc placement pending. DC order placed. Infusion center to do Picc Care. Plan: Home independently with outpatient infusions of antibiotics. Date Signed: 12/31/2017 03:22 PM Electronically Signed By:Tiera Bustillo RN
--- NOTE | 2017-12-31 15:32 | GDS ---
[f rep st] DISCHARGE SUMMARY DISCHARGE DIAGNOSES: 1. Urinary tract infection with extended spectrum beta-lactamase bacteremia. 2. Atrophic right kidney. 3. Acute renal failure number. 4. Hyponatremia. 5. History of transient ischemic attack. 6. Chronic obstructive pulmonary disease. CONSULTATIONS: Infectious Disease. STUDIES AND PROCEDURES: Abdominal ultrasound. PHYSICAL EXAM: GENERAL: The patient is alert. VITAL SIGNS: Afebrile at 36.4, pulse is 93, respira tory rate 16, blood pressure is 125/69. She is saturating greater than 90% on room air. I have seen and evaluated the patient on the day of discharge. HOSPITAL COURSE: 1. The patient is an 87-year-old female who presented to the emergency room with complaints of weakn ess. She was evaluated and diagnosed with ESBL urinary tract infection with bacteremia. During this hospitalization, she was treated with IV Invanz. A PICC line has been placed and she will continue IV Invanz in the outpatient setting for a total of 14 days. 2. Atrophic right kidney with urethral stricture. It is recommended she have a repeat CT scan in after her urinary tract infection resolves. 3. Acute renal failure. This is multifactorial in the setting of infection, as well as dehydration. Her home medications have been adjusted. Her renal failure is stable. 4. Hyponatremia. This is acute on chronic. She has returned to her baseline with IV hydration. 5. History of transient ischemic attack. Her Plavix has been continued. She is at her baseline. 6. Chronic obstructive pulmonary disease. We will continue her Symbicort. DISPOSITION: The patient will be discharged home with her daughter independently. She is not wantin g any home care at the time of disposition. She will return to the infusion center for daily IV Inva nz infusions. FOLLOWUP: Followup will be with Mackenzie Snyder in [facility], as well as her primary care physic jannette, Dr. Monse Sykes. I have discussed the patient's disposition with Dr. Abdon Michel, who is in agre ement with the plan. I spent greater than 35 minutes in the care, coordination and management of the patient's disposition. /[id number]/MODL
[2017-12-31] MEDS: ERTAPENEM 1 GM in NS 100 ML IV SCH (17:16)
--- NOTE | 2018-01-01 09:16 | PDMN ---
Medical Necessity Medical necessity: est los>2mn for UTI, JACKY r/t infection and dehydration, and acute on chronic hyponatremia; requires IV abx, contact precautions, ID consult , and follow cx's; comorbid HTN, COPD, hx ESBD E.coli and TIA; per order and progress note 12/28/17
== END 2017-12-31 18:08 | disposition home or self-care (01) | DRG 690 ==
LOC: INTOOBSV 22:34 → OBSVTOIN 22:43 → F3E 23:25
PROVIDERS: ADMIT Student in an Organized Health Care Education/Training Program; ATTEND Student in an Organized Health Care Education/Training Program
PROC: 02HV33Z Insertion of Infusion Device into Superior Vena Cava, Percutaneous Approach (ICD-10-PCS; principal; 2017-12-31)
DX: N39.0 Urinary tract infection, site not specified (principal); R78.81 Bacteremia; E87.1 Hypo-osmolality and hyponatremia; N26.1 Atrophy of kidney (terminal); J44.9 Chronic obstructive pulmonary disease, unspecified; I10 Essential (primary) hypertension; E03.9 Hypothyroidism, unspecified; B96.20 Unspecified Escherichia coli [E. coli] as the cause of diseases classified elsewhere; E86.0 Dehydration; Z87.440 Personal history of urinary (tract) infections; Z86.73 Personal history of transient ischemic attack (TIA), and cerebral infarction without residual deficits
CPT/HCPCS: C1751; G0378; J1335; J1644; J7613

== ENCOUNTER → 2017-12-27 | Outpatient (CLI) | payer OTHER, MEDICARE | LOC: FIMAGING 15:17 | PROVIDERS: ATTEND Internal Medicine | DX: M46.44 Discitis, unspecified, thoracic region (principal); J44.9 Chronic obstructive pulmonary disease, unspecified ==